=== PATIENT | male | born 1965 | race Caucasian/White ===

== ENCOUNTER → 2022-07-25 08:49 | Outpatient (BNVA) | payer OTHER, SELFPAY | PROVIDERS: PCP Nurse Practitioner Family; Referring Provider Nurse Practitioner Family; Visit Provider Surgery | DX: K40.20 Bilateral inguinal hernia, without obstruction or gangrene, not specified as recurrent (principal); M54.31 Sciatica, right side; H93.19 Tinnitus, unspecified ear; F41.9 Anxiety disorder, unspecified | CPT/HCPCS: 99202 ==

== ENCOUNTER 2022-08-13 13:17 | Outpatient (REF) | payer OTHER, SELFPAY ==
--- NOTE | ~2022-08-13 | XR_ITS ---
EXAMINATION: XR lumbar spine 6V w bending CLINICAL INFORMATION: Reason for Exam M47.816 - Spondylosis without myelopathy or radiculopathy, lumbar region COMPARISON: None TECHNIQUE: 6 views of the lumbar spine FINDINGS: 5 nonrib-bearing lumbar-type vertebral bodies. Vertebral body heights are maintained. Alignment is maintained. No pars defects. Minimal degenerative change and small anterior disc osteophyte complexes. Disc space heights are maintained. Paravertebral soft tissues are unremarkable. XR/XR lumbar spine 6V w bending IMPRESSION: Mild spondylosis of the lumbar spine, as above detailed.
== END 2022-08-13 13:18 | disposition home or self-care (01) ==
LOC: HO.XRAY 13:17
PROVIDERS: PCP Internal Medicine; Visit Provider Nurse Practitioner Family
DX: M47.816 Spondylosis without myelopathy or radiculopathy, lumbar region (principal); M54.16 Radiculopathy, lumbar region; M51.36 Other intervertebral disc degeneration, lumbar region
CPT/HCPCS: 72114; 99202

== ENCOUNTER 2022-08-23 07:55 | Outpatient (REF) | payer OTHER, SELFPAY ==
[2022-08-23 08:07] LABS: MANUAL DIFF FLAG NO
[2022-08-23 08:17] LABS: Basophils Absolute Auto 0.1 X10*3/uL (0.0-0.2); Basophils Percent Auto 1.4 % (0-2); Eosinophils Absolute Auto 1.2 X10*3/uL (0.0-0.4); Eosinophils Percent Auto 14.2 % (0-4); Hematocrit 45.1 % (42.0-52.0); Hemoglobin 14.9 g/dl (14.0-18.0); Imm Gran Abs Auto 0.04 X10*3/uL (0.00-0.03); Imm Gran Pct Auto 0.5 % (0.0-0.4); Lymphocytes Absolute Auto 2.4 X10*3/uL (1.2-4.9); Lymphocytes Percent Auto 28.1 % (20-40); Mean Corpuscular Volume 81.9 fL (80.0-98.0); Mean Platelet Volume 8.6 fL (9.4-12.4); Monocytes Absolute Auto 0.9 X10*3/uL (0.1-1.2); Monocytes Percent Auto 10.7 % (2-11); Neutrophils Absolute Auto 3.9 x10*3/uL (2.0-8.3); Neutrophils Percent Auto 45.1 % (45-73); Platelet Count 330 X10*3/uL (160-400); Red Blood Count 5.51 X10*6/uL (4.60-5.80); Red Cell Distribution Width 13.1 % (11.0-16.0); White Blood Count 8.7 X10*3/uL (4.8-10.8)
[2022-08-23 08:50] LABS: Alanine Aminotransferase 33 U/L (0-40); Albumin Level 4.3 g/dL (3.5-5.0); Alkaline Phosphatase 86 U/L (39-117); Anion Gap 14 (12-20); Aspartate Amino Transferase 37 U/L (5-37); Bilirubin Total 2.1 mg/dL (0.0-1.0); Blood Urea Nitrogen 24 mg/dL (9-16); Calcium 9.3 mg/dL (8.4-10.2); Carbon Dioxide 26 mmol/L (22-29); Chloride 105 mmol/L (96-108); Cholesterol 227 mg/dL; Estimated Glomerular Filt Rate > 60; Glucose Fasting 97 mg/dL (60-99); HDL Cholesterol 51 mg/dL; LDL Cholesterol Calculated 157 mg/dl; Potassium 4.6 mmol/L (3.3-5.1); Sodium 140 mmol/L (135-145); Total Protein 6.7 g/dL (6.5-8.0); Triglycerides 99 mg/dL
[2022-08-23 09:22] LABS: Folate 14.2 ng/mL (> or = 4.0); TSH reflex Free T4 2.77 uIU/mL (0.32-4.0); Vitamin B12 674 pg/mL (200-900); Vitamin D 25-OH Total 32.3 ng/mL (>30)
== END 2022-08-23 07:56 | disposition home or self-care (01) ==
LOC: HO.LAB 07:55
PROVIDERS: Visit Provider Nurse Practitioner Family
DX: Z12.5 Encounter for screening for malignant neoplasm of prostate (principal); Z76.89 Persons encountering health services in other specified circumstances
CPT/HCPCS: 36415; 80053; 80061; 82306; 82607; 82746; 84153; 84443; 85025

== ENCOUNTER 2022-09-01 09:40 | Outpatient (REF) | payer OTHER, SELFPAY | END 2022-09-01 09:41 | disposition home or self-care (01) | LOC: HO.LNP 09:40 | PROVIDERS: Visit Provider Nurse Practitioner Family | DX: K21.9 Gastro-esophageal reflux disease without esophagitis (principal) | CPT/HCPCS: 87338 ==

== ENCOUNTER 2022-09-03 13:00 | Outpatient (RCR) | payer OTHER, SELFPAY ==
--- NOTE | 2022-08-09 16:48 | MHC.PT.EP ---
[facility] [place] Office [place] Office [place] Office [address] Winnie Kendall [address] [phone] F: [phone] F: [phone] F: [phone] F: [phone] Physical Therapy Plan of Care Date of Evaluation: Date of Surgery: Diagnosis: RIGHT sided sciatica Small central disc protrusion at L5/S1 minimal bulging annulus L2/L3 and L4/L5 Assessment: Patient is a Jamaican speaking 57 y.o. male who is referred to PT by Marisol Rosado MD with Dx of right sided sciatica. PT diagnosis is lumbar spine small central disc protrusion at L5/S1 and minimal bulging annulus L2/L3 and L4/L5 as seen on MRI results. He does have chronic LBP with 2+ yr history with significant compensations which makes his prognosis fair. Patient impairments include poor posture and positioning, pain, radicular sxs, limited ROM, weakness, antalgic gait. Patient current functional limitations are bending, lifting, prolonged sitting, prolonged walking, 3 flights of stairs, sleeping. Patient will benefit from skilled PT to address aforementioned impairments and functional limitations to meet established goals. Frequency and Duration: The patient will be seen 2x/week for 4 weeks Short Term Goals: 2 weeks Patient presents with proper use of cane in L hand to offload R LE with step through pattern safely 100 ft. Patient demonstrates understanding of lumbar centralization versus peripheralization related to LBP with regards to movement and exercise. Nursing Home Goals: 4 weeks Patient presents with increased lumbar extension AROM 10 degrees to be able to stand for 15 mins for bathing. Patient presents with increased R hip flexion 4/5 to be able to ascend/descend 1 flight of stairs with railing. Treatment Plan: Modalities to reduce pain, spasms and effusion. Manual therapy to restore motion and function. Therapeutic exercise to improve strength and flexibility. Neuromuscular re-education for posture and balance. Therapeutic activities to return to functional activities of daily living. Electronically signed by: Hussein New, PT, DPT Please sign and return to therapist. Thank you for your referral.
--- NOTE | 2022-10-30 11:29 | MHC.PT.DC ---
[facility] [place] Office [place] Office [place] Office [address] Winnie Kendall [address] [phone] F: [phone] F: [phone] F: [phone] F: [phone] Physical Therapy Discharge Report Diagnosis: RIGHT sided sciatica Small central disc protrusion at L5/S1 minimal bulging annulus L2/L3 and L4/L5 Date of Surgery: Date of Evaluation: 08/09/22 Date of Discharge: 10/30/22 Treatments to Date: 6 Cancellations to Date: 1 No Shows to Date: Discharge Status: Patient Elected to Stop Discharge Summary: Patient ceased attending PT on his own accord, had difficulty tolerating PT treatments due to pain. He was referred and seen by spine center on 10/10/22 and they are taking over his care to perform imaging and perform alternate interventions. He is discharged from PT at this time. Electronically signed by: Hussein New, PT, DPT Please sign and return to therapist. Thank you for your referral.
== END 2022-10-30 11:30 | disposition home or self-care (01) ==
LOC: HO.PT 13:00
PROVIDERS: Visit Provider Nurse Practitioner Family
DX: M54.31 Sciatica, right side (principal)
CPT/HCPCS: 97014; 97110; 97116; 97140; 97161

== ENCOUNTER → 2022-10-09 09:45 | Outpatient (BNVA) | payer OTHER, SELFPAY | PROVIDERS: PCP Nurse Practitioner Family; Visit Provider Internal Medicine | DX: K21.9 Gastro-esophageal reflux disease without esophagitis (principal); K57.90 Diverticulosis of intestine, part unspecified, without perforation or abscess without bleeding; Z79.1 Long term (current) use of non-steroidal anti-inflammatories (NSAID); Z79.899 Other long term (current) drug therapy | CPT/HCPCS: 99202 ==

== ENCOUNTER → 2022-10-10 12:47 | Outpatient (BNVA) | payer OTHER, SELFPAY | PROVIDERS: PCP Nurse Practitioner Family; Visit Provider Neurological Surgery | DX: M54.16 Radiculopathy, lumbar region (principal) | CPT/HCPCS: 99202 ==

== ENCOUNTER 2022-10-16 13:07 | Emergency (ER) | payer OTHER, SELFPAY ==
--- NOTE | ~2022-10-16 | CT_ITS ---
EXAMINATION: CT CERVICAL SPINE WITHOUT CONTRAST CLINICAL INFORMATION: Neck pain radiating to bilateral shoulders COMPARISON: None available. TECHNIQUE: Axial 3 mm thin and reformatted 2 mm thin sagittal and coronal images of cervical spine were obtained without contrast This CT examination was performed using dose optimization techniques as appropriate, variously including the following: *Automated exposure control *Adjustment of mA and/or kV according to patient size (this includes techniques or standardized protocols for targeted exams where dose is matched to indication/reason for exam; i.e. extremities or head) *Use of iterative reconstruction technique DLP: 465 mGy-cm FINDINGS: On sagittal reconstructed images there is mild straightening of cervical lordosis. The vertebral heights, alignment and disc heights are normal. The craniovertebral junction and the C1-C2 alignment is normal. There is no visible acute fracture, dislocation or subluxation seen. The prevertebral and paravertebral soft tissues are normal. The airway is widely patent. Visualized bilateral maxillofacial, ethmoid and sphenoid frontal sinuses are widely patent with trace mucoperiosteal thickening bilateral maxillary sinuses. Bilateral TMJs are symmetric and normal. Visualized mandible and bilateral upper posterior ribs are intact. CT/CT cervical spine wo IV con IMPRESSION: 1. Mild straightening of cervical lordosis without any visible acute fracture, dislocation or subluxation. 2. Mild bilateral chronic maxillary sinus inflammatory changes. Fleischner guidelines were followed.
--- NOTE | 2022-10-16 13:49 | ED.GENADULT ---
HPI - General Adult General Chief complaint: Back Pain/Injury Stated complaint: Shoulder Neck Back Pain No Injury Time Seen by Provider: 10/16/22 16:49 Source: patient Mode of arrival: ambulatory Limitations: no limitations History of Present Illness HPI narrative: This is a 57-year-old Welsh-speaking male history of lumbar radiculopathy, GERD, depression, anxiety, chronic neck pain, hyperlipidemia presenting to the emergency department complaints of upper back pain, neck, b/l shoulder pain since yesterday, atraumatic in nature. Patient states he gets this pain all the time however this time it is not going away despite taking gabapentin, time Tylenol, ibuprofen. patient reports this started after awaking 1 day, he woke up with a stiff neck. Patient reports that since 1989 he has been getting pain like this since he had a horseback riding accident. Patient is followed by water resource engineering specialist for this recently saw neuro surgery on October 10, who recommended repeat MRI of the lumbar spine which he has not yet gotten. Denies recent fall or injury, urinary/ bowel incontinence/ retention, saddle paresthesias, numbness, tingling, headache, vision changes, dizziness, chest pain, shortness of breath, upper extremity weakness, lower extremity weakness. Related Data Previous Rx's Medication Instructions Recorded lidocaine 5 % topical patch 1 patch topical DAILY pain 30 days 08/13/22 #30 ea cane #1 ea 08/29/22 ibuprofen 600 mg tablet 600 mg PO Q8H PRN pain #30 tabs 08/31/22 sertraline 25 mg tablet 25 mg PO DAILY #30 tabs 09/12/22 cyclobenzaprine 5 mg tablet 5 mg PO Q12H PRN for muscle spasm 10/11/22 #30 tabs gabapentin 300 mg capsule 300 mg PO BEDTIME for pain 30 days 10/11/22 #30 caps cetirizine 10 mg tablet (Zyrtec) 10 mg PO DAILY PRN allergy 10/16/22 symptoms #90 tabs lidocaine 5 % topical patch 1 patch topical DAILY PRN pain #15 10/16/22 ea morphine 15 mg immediate release 15 mg PO Q6H PRN pain 5 days #10 10/16/22 tablet tabs omeprazole 20 mg capsule,delayed 20 mg PO BID 4 weeks #180 caps 10/16/22 release prednisone 20 mg tablet 40 mg PO DAILY 5 days #10 tabs 10/16/22 Allergies Allergy/AdvReac Type Severity Reaction Status Date / Time Seasonal Allergies Allergy Mild Unknown Verified 10/16/22 13:53 [facility] Past Medical History Medical History Encounter to establish care Surgical History History of ankle surgery History of colonoscopy History of esophagogastroduodenoscopy (EGD) Social History Social History Alcohol intake: never Patient Tobacco Use Status: Never used Tobacco Smoked in Last 30 Days: No e-Cigarette/Vaping Use: Never Used Use of substances other than those prescribed or required for medical reasons: No Advance Directives: No Advance Directives Information Provided: No service: No Cognitive needs: No Hearing needs: No Vision needs: No Physical Exam ED Vital Signs: Vital Signs - 24 hr 10/16/22 13:53 Temperature 96.8 F Pulse Rate 104 H Respiratory Rate 16 Blood Pressure 133/93 H Pulse Oximetry 97 Oxygen Delivery Method Room Air BMI result Body Mass Index 27.5 vss Appearance: Alert.? Oriented X3.? No acute distress.? Head: Normocephalic, atraumatic, no step-offs or deformities Eyes: Pupils equal, round and reactive to light.? ENT: Pharynx normal.??External ears normal, TMs normal bilaterally and EAC's normal. No pain with manipulation of external ears bilaterally. No mastoid tenderness. Neck: Normal inspection.? Neck supple.?+midline cervical spinous ttp to light touch & b/l shoulders/traps TTP . Negative Kernig and Brudzinski CVS: Normal heart rate and rhythm.? Pulses normal.? Respiratory: No respiratory distress.? Breath sounds normal.? Abdomen: Soft and nontender.? Skin: Skin warm and dry.? Normal skin color.? Normal skin turgor.? Extremities: No lower extremity edema.? No calf ttp. 5/5 strength to bilateral upper and lower extremities Back: No midline tenderness, no C-spine tenderness, full range of motion, no CVA tenderness bilaterally Neuro: Oriented X 3.? No motor deficit.? No sensory deficit. CN 2-12 intact Course Course Course Narrative: RME: 57yo M w/PMHx GERD, HLD, anxiety, depression, right lumbar radiculopathy c/o pain in neck, shoulder and upper back x yesterday morning. admits this pain is acute on chronic s/p horse accident in . denies recent injury/fall, incontinence or retention. Takes Gabapentin & Tylenol & Naproxen w/o relief Patient saw neuro surgery on 10/10 who would like to repeat MR of the lumbar spine, patient denies mentioning this pain at that time. +midline cervical spinous ttp to light touch & b/l shoulders/traps Full HPI, ROS and PE to be performed by primary ED provider. Reevaluation(s) Reevaluation #1: CT of cervical spine with mild straightening of the cervical lordosis out any visible acute fractures, dislocation or subluxations. Mild bilateral chronic maxillary sinus inflammatory changes. I suspect this is muscle spasms/ torticollis. Give morphine, Valium, Lidoderm patch. Have him follow up with signs poor and his neurosurgeon. Educated patient on diagnosis and treatment plan, answered all question, patient verbalizes understanding. At this time patient will be discharged home, advised to return with new or worsening symptoms. Educated on worrisome signs and symptoms and when to return. At this time I feel comfortable discharge home. Time: 17:32 Medical Decision Making Medical Decision Making [facility] Narrative: [id number] 57-year-old male presents with pain in neck, shoulders and back since yesterday morning history pain like this in the past intermittently since horseback riding accident 1989. Physical exam significant for midline cervical spinous ttp to light touch & b/l shoulders/traps TTP unlikely fractures, dislocations, cord compression, nerve impingement likely musculoskeletal in origin , torticollis, muscle spasms. unlikely epidural abscess, meningitis, encephalitis, ACS. Plan CT ordered from triage, will medicate with morphine, Lidoderm patch. Differential Diagnosis Differential Diagnoses: The differential diagnosis associated with the presentation includes unlikely fractures, dislocations, cord compression, nerve impingement likely musculoskeletal in origin, torticollis, muscle spasm. unlikely epidural abscess, meningitis, encephalitis, ACS. Admission/Observation Consideration of admission/observation: Escalation of care including admission/observation considered Unlikely Independent Interpretation I performed an independent interpretation of an: CT Scan Radiology Impression Discussion of test interpretation with radiology: I have reviewed the radiologist's reading. Core Measures AMI core measures followed: Yes Measure exclusions: not indicated Critical Care Time Critical Care Time Critical Care Time: No Discharge Plan Discharge Clinical Impression: Cervical paraspinal muscle spasm, Trapezius muscle spasm Patient Disposition: Home, Self-Care Instructions: Muscle Spasm (ED) Additional Instructions: Take your medications as prescribed. If you were prescribed antibiotics today, it is important that you take your medication to their entirety, do not skip any doses, do not finish them early. Follow-up with your primary care provider this week and neuro surgery. Return to the emergency department with new or worsening symptoms. Such as fevers, chills, chest pain, shortness of breath, nausea, vomiting, dizziness, headache, vision changes, lethargy In case of emergency call 911 CT/CT cervical spine wo IV con IMPRESSION: 1.? Mild straightening of cervical lordosis without any visible acute fracture, dislocation or subluxation. 2.? Mild bilateral chronic maxillary sinus inflammatory changes. ? Fleischner guidelines were followed. Prescriptions: New prednisone 20 mg tablet 40 mg PO DAILY 5 Days Qty: 10 0RF lidocaine 5 % adhesive patch,medicated 1 patch topical DAILY PRN (Reason: pain) Qty: 15 0RF Rx Instructions: leave on most painful area for up to 12 hrs morphine 15 mg tablet 15 mg PO Q6H PRN (Reason: pain) 5 Days Qty: 10 0RF Rx Instructions: Partial Fill upon patient request. No Action gabapentin 300 mg capsule 300 mg PO BEDTIME 30 Days Qty: 30 1RF cyclobenzaprine 5 mg tablet 5 mg PO Q12H PRN (Reason: for muscle spasm) Qty: 30 0RF omeprazole 20 mg capsule,delayed release(DR/EC) 20 mg PO BID 28 Days Qty: 180 0RF cetirizine [Zyrtec] 10 mg tablet 10 mg PO DAILY PRN (Reason: allergy symptoms) Qty: 90 1RF sertraline 25 mg tablet 25 mg PO DAILY Qty: 30 2RF ibuprofen 600 mg tablet 600 mg PO Q8H PRN (Reason: pain) Qty: 30 0RF (DME) cane Device See Rx Instructions .Route Qty: 1 0RF Rx Instructions: As directed lidocaine 5 % adhesive patch,medicated 1 patch topical DAILY 30 Days Qty: 30 0RF Referrals: Saykin,Marisol, DIRECTOR REGULATORY AFFAIRS [Primary Care Provider] - 2 days Spine&Sports Physician [Provider Group] - 2 days Stand Alone Forms: Work/School Release
[2022-10-16 13:53] VITALS: BP 133/93; PULSE 104; RESP 16; TEMP 36; O2SAT 97; BMI 27.5
[2022-10-16] MEDS: Morphine Sulfate Immed Release 15 MG TABLET PO (17:43)
[2022-10-16] MEDS: Lidocaine 4 % Patch ADH..PATCH 1 PATCH TRANSDERMA (17:43)
[2022-10-16] MEDS: diazePAM 2 MG TABLET PO (17:43)
[2022-10-16 17:52] VITALS: BP 131/92; PULSE 88; RESP 16; O2SAT 96
== END 2022-10-16 18:02 | disposition home or self-care (01) ==
PROVIDERS: Emergency Provider Emergency Medicine; PCP Nurse Practitioner Family
DX: M54.2 Cervicalgia (principal); M62.838 Other muscle spasm; M25.512 Pain in left shoulder; M25.511 Pain in right shoulder; M54.50 Low back pain, unspecified; Z79.899 Other long term (current) drug therapy
CPT/HCPCS: 72125; 99284

== ENCOUNTER 2022-11-14 09:41 | Outpatient (AMB) | payer OTHER, SELFPAY ==
--- NOTE | 2022-11-14 09:44 | A.OFFVIS_ITS ---
Intake Vital Signs 11/14/22 09:46 Height 5 ft 3.5 in Weight 158 lb 11.725 oz BMI 27.7 BP 118/74 Blood Pressure Location Lt brachial Position Sitting Pulse 73 Intake Visit Reasons: 6 week f/u Intake Note: Ney presents in the office as a 6 week follow up. CC: He states that he is having pains in the stomach are still continuing. Identity Management Consultant Required: Yes Identity Management Consultant Name: Darleen Dooley Allergies Seasonal Allergies Allergy (Mild, Verified 11/14/22 09:47) Unknown HPI HPI Comments History of Present Illness Details 57 y.o M with PMH of diverticulosis, who is here for follow up of GERD. 10/09/22: Seen with the help of court interpreter. Reports epigastric pain with certain foods such as peppers, grains, beans, chocolate which gets better with melon. Describes the discomfort as burning that goes up to chest. Sx are mostly at night time. No nausea or regurgitation. Does take ibuprofen daily for low back pain almost 3 years. Does not take any etOH. Former smoker. No fam hx of stomach cancer. No melena or hematochezia. In terms of diverticulosis describes having an upper and lower endoscopy 1.5y ago in [place] where he was told he has diverticulosis. Does not describe any changes in bowel habits. 11/14/22: Reports resolution of sx since starting omeprazole BID. Has no furhter burning epigastric pain. Avoiding food triggers as well. Never had any bowel changes to begin with. [facility] Medical History Encounter to establish care Surgical History History of ankle surgery History of colonoscopy History of esophagogastroduodenoscopy (EGD) Social History Alcohol intake: never Patient Tobacco Use Status: Never used Tobacco e-Cigarette/Vaping Use: Never Used service: No Cognitive needs: No Hearing needs: No Vision needs: No Review of Systems Const All systems reviewed & are unremarkable except as noted in HPI and below Physical Exam Vital Signs: Last Vital Signs Pulse 73 11/14/22 09:46 BP 118/74 11/14/22 09:46 BMI result Body Mass Index 27.7 Gen appear: NAD HEENT: nonicteric, no cervical lymphadenopathy Chest: CTA CVS: Regular S1/S2 Abd: soft, nontender, nondistended, bowel sounds + Ext: no peripheral edema Neuro: A/Ox3, noted to move all extremities spontaneously Psych: interacting appropriately Assessment & Plan Assessment & Plan (1) GERD (gastroesophageal reflux disease): Code(s): K21.9 - Gastro-esophageal reflux disease without esophagitis (2) NSAID long-term use: Code(s): Z79.1 - [facility] (current) use of non-steroidal anti-inflammatories (NSAID) (3) Diverticulosis: Code(s): K57.90 - Diverticulosis of intestine, part unspecified, without perforation or abscess without bleeding Plan 1. Sx resolved with avoidance of NSAIDs, food triggers and starting PPI therapy. Discussed indication of EGD with the pt who prefers to hold off for now since sx have responded well to measures above and previous EGD in [place] 2 years ago was normal per his report. Plan: - Decrease omeprazole to 20mg once daily x 4 weeks and can then stop - Recheck CBC - Pt to call us for return of sx for consideration of repeat EGD. 2. Reports having a colonoscopy was 2020 in [place], that also showed diverticulosis. No ongoing concerns related to diverticulosis such as changes in bowel habits, or bleeding. He reports that he was advised to return in 5 years i.e 2025. Bulletin board updated. Reminder set. Orders: Orders Complete Blood Count no Diff Today K21.9 - Gastro-esophageal reflux disease without esophagitis Ale Strong MD Medications: Changed From omeprazole 20 mg PO BID 4 weeks 180 caps 0RF K21.9 - Gastro-esophageal reflux disease without esophagitis To omeprazole 20 mg PO DAILY 4 weeks 28 caps 0RF K21.9 - Gastro-esophageal reflux disease without esophagitis Ale Strong MD On Hold ibuprofen Hold Comment: patient no 600 mg PO Q8H PRN 30 tabs 0RF pain M54.31 - Sciatica, right side EMILIE Haddad Coding Level of Care Code Est Pt Level 4 (42940) Diagnoses GERD (gastroesophageal reflux disease) K21.9 NSAID long-term use Z79.1 Diverticulosis K57.90
[2022-11-14 09:46] VITALS: BP 118/74; PULSE 73; BMI 27.7
== END 2022-11-14 11:16 | disposition home or self-care (01) ==
PROVIDERS: PCP Nurse Practitioner Family; Visit Provider Internal Medicine
DX: K21.9 Gastro-esophageal reflux disease without esophagitis (principal); Z79.1 Long term (current) use of non-steroidal anti-inflammatories (NSAID); K57.90 Diverticulosis of intestine, part unspecified, without perforation or abscess without bleeding
CPT/HCPCS: 99214

== ENCOUNTER 2022-11-14 09:41 | Outpatient (REF) | payer OTHER, SELFPAY ==
[2022-11-14 10:45] LABS: Hematocrit 44.2 % (42.0-52.0); Hemoglobin 14.6 g/dl (14.0-18.0); Mean Corpuscular Hemoglobin 27.1 pg (27.0-33.0); Mean Platelet Volume 8.6 fL (9.4-12.4); Platelet Count 333 X10*3/uL (160-400); Red Blood Count 5.39 X10*6/uL (4.60-5.80); Red Cell Distribution Width 12.8 % (11.0-16.0); White Blood Count 7.3 X10*3/uL (4.8-10.8)
== END 2022-11-14 09:42 | disposition home or self-care (01) ==
LOC: HO.LAB 09:41
PROVIDERS: PCP Nurse Practitioner Family; Visit Provider Internal Medicine
DX: K21.9 Gastro-esophageal reflux disease without esophagitis (principal); K57.90 Diverticulosis of intestine, part unspecified, without perforation or abscess without bleeding; R10.13 Epigastric pain; Z79.01 Long term (current) use of anticoagulants
CPT/HCPCS: 36415; 85027; 99212

== ENCOUNTER 2022-12-05 10:22 | Outpatient (AMB) | payer OTHER, SELFPAY ==
[2022-12-05 10:23] VITALS: BP 110/72; PULSE 78; O2SAT 96; BMI 27.9
--- NOTE | 2022-12-05 10:23 | A.OFFPC_ITS ---
Vital Signs 12/05/22 10:23 Height 5 ft 3.5 in Weight 160 lb BMI 27.9 BP 110/72 Blood Pressure Location Lt brachial Position Sitting Pulse 78 Pulse Source Pulse Oximeter Temp Source Skin Pulse Oximetry (%) 96 Oxygen Delivery Method Room Air Intake Visit Reasons: 2mth f/u Barrel Charrer Required: Yes Barrel Charrer Language: Cuban Allergies Seasonal Allergies Allergy (Mild, Verified 12/05/22 11:58) Unknown Medication List - Last Reconciled 12/05/22 by ARIEL Bliss acetaminophen (Tylenol Extra Strength) 1,000 mg PO Q6H PRN cane As directed cetirizine (Zyrtec) 10 mg PO DAILY PRN cyclobenzaprine 5 mg PO Q8H PRN gabapentin 300 mg PO BEDTIME 30 days hydroxyzine HCl 10 mg PO TID PRN lidocaine 5% 1 patch topical DAILY 30 days miscellaneous medical supply 1 ea miscellaneous DAILY omeprazole 20 mg PO DAILY 4 weeks sertraline 50 mg PO DAILY Tobacco use date assessed: 12/05/22 Dental Screening Dental Screen Date: 12/05/22 HPI 2mth f/u HPI Details Patient is a 57-year-old male who presents today to follow-up on depression. Medical history significant for sciatica of right side-followed by [facility]-plan for lumbar spine MRI, lumbar radiculopathy, anxiety, GERD-followed by [facility], depression, hyperlipidemia, cervical radiculopathy- will be having cervical spine MRI - reports intermittent electric shock going down to both of his arms - reports intermittent numbness in his 4th and 5th fingers-reports muscle spasms. Patient also reports left shoulder pain and unable to raise his left arm completely for the past 3 months, reports pain sometimes radiate from his neck to his shoulder and sometimes he can feel pain in his left shoulder. At the last office visit patient was started on sertraline 25 mg daily for depression and anxiety, he reports that he does not think this medication is working for him. He still reports anxiety and depression. He reports when he feels very anxious he can have palpitations in his neck area. Patient is following by therapist. He will be seeing psychiatrist this month. Patient also reports left leg varicose veins for the past 3 months, reports intermittent swelling, would like assessment for this. Patient denies shortness of breath or chest pain. Ambulates with a rolling walker. Patient is a Cuban-speaking and Mary Carmen was helping with interpretation. [facility] Medical History Encounter to establish care Surgical History History of ankle surgery History of colonoscopy History of esophagogastroduodenoscopy (EGD) Social History Alcohol intake: never Patient Tobacco Use Status: Never used Tobacco e-Cigarette/Vaping Use: Never Used service: No Cognitive needs: Yes Hearing needs: No Vision needs: No Questionnaire Thrive Questionnaire Date Thrive assessed: 09/12/22 AUDIT C Alcohol Use Questionnaire (AUDIT-C) 1. How often do you have a drink containing alcohol?: Never 2. How many drinks containing alcohol do you have on a typical day when you are drinking?: 1 or 2 3. How often do you have six or more drinks on one occasion?: Never Total Score: 0 Score Reviewed/Action Taken: No CHERELLE-7 AMB Questionnaire CHERELLE-7 Date CHERELLE - 7 assessed: 09/12/22 Source: Developed by Drs. Natanael Espinal, Silvia Boswell, Isacc López and colleagues, with an educational og from [employer]. Review of Systems Const Denies body aches, Denies chills, Denies fever(s) and Denies headache(s) Eyes Denies change in vision ENT Denies dizziness, Denies otalgia, Denies headache(s), Denies nasal discharge, Denies sinus pain and Denies sore throat Card Denies chest pain, Denies edema, Denies lightheadedness and Denies dyspnea Resp Denies cough, Denies dyspnea and Denies wheezing GI Denies constipation, Denies diarrhea, Denies nausea and Denies vomiting Denies dysuria Musc Reports back pain, Denies myalgias and Reports arthralgias Skin/Breast Reports as per HPI, Denies lesions and Denies rash Neuro Denies dizziness and Denies headache(s) Aller/Immun Denies wheezing Physical exam (Primary Care) Vital Signs: Last Vital Signs Pulse 78 12/05/22 10:23 BP 110/72 12/05/22 10:23 Pulse Ox 96 12/05/22 10:23 Oxygen Delivery Method Room Air 12/05/22 10:23 BMI result Body Mass Index 27.9 Tobacco/Smoking Status: Tobacco use Status Tobacco use date assessed 12/05/22 12/05/22 10:24 Patient Tobacco Use Status Never used Tobacco 12/05/22 10:24 e-Cigarette/Vaping Use Never Used 12/05/22 10:24 Thrive Assessment: Date of Thrive Assessment Date Thrive assessed 09/12/22 12/05/22 10:24 Const Other: Patient ambulates with a cane General: cooperative and no acute distress Orientation/consciousness: patient oriented x3 HENMT Head: Yes normocephalic and Yes atraumatic Face and sinus: Yes sinuses nontender Mouth: oropharynx normal and moist mucous membranes Throat: Yes posterior oropharynx normal Eyes General: appearance normal, both eyes and all related structures Neck Neck: Yes normal visual inspection, Yes full ROM and Yes no lymphadenopathy Resp Effort & Inspection: normal respiratory effort and able to speak in complete sentences Auscultation: clear to auscultation bilaterally, no crackles, no rales, no rhonchi and no wheezes Cardio Rate: regular rate Rhythm: regular rhythm Heart sounds: S1 normal heart sound present, S2 normal heart sound present and no murmurs GI Auscultation: normal bowel sounds Back/Spine/Pelvis Cervical Spine: cervical muscular tenderness and No Cervical spine tenderness Skin Other: Nontender varicose veins noted to left lower extremity General skin exam: no rashes or lesions noted Neuro Other: Very mild weakness noted to bilateral upper extremity General: patient oriented x3 and CN's II-XI intact bilaterally Extrem General: Yes full ROM and No edema Left upper extremity: shoulder/upper arm Details: inspection abnormal, tenderness (Anterior/posterior) and abnormal ROM (Unable to abduct left shoulder completely); no swelling, no ecchymosis, no crepitus and no unsual warmth Assessment and Plan Assessment & Plan (1) Anxiety: Code(s): F41.9 - Anxiety disorder, unspecified Plan: Continue to follow-up with therapist Patient will be seeing psychiatry this month Increase sertraline to 50 mg daily Start hydroxyzine 10 mg t.i.d. p.r.n.-educated about drowsiness (2) Lumbar radiculopathy: Code(s): M54.16 - Radiculopathy, lumbar region Plan: Continue to follow-up with [facility] - plan for lumbar spine MRI Continue to follow-up with [place] pain management Continue gabapentin, Tylenol, cyclobenzaprine (3) Depression: Code(s): F32.A - Depression, unspecified Qualifiers: Depression Type: other depression Qualified Code(s): F32.89 - Other specified depressive episodes Plan: Continue to follow-up with therapist Patient will be seeing psychiatry this month Increase sertraline to 50 mg daily Start hydroxyzine 10 mg t.i.d. p.r.n.-educated about drowsiness (4) Varicose vein of leg: Code(s): I83.90 - Asymptomatic varicose veins of unspecified lower extremity Plan: Vascular surgery referral for an evaluation and treatment (5) Left shoulder pain: Code(s): M25.512 - Pain in left shoulder Plan: Patient is to continue gabapentin, cyclobenzaprine, Tylenol Will obtain left shoulder x-ray Patient would like to hold off on physical therapy referral at this time (6) Cervical radiculopathy: Code(s): M54.12 - Radiculopathy, cervical region Plan: Patient will be having cervical spine MRI Will increase cyclobenzaprine to every 8 hours p.r.n., continue Tylenol and gabapentin Plan Follow-up in 3 months or sooner as needed Orders: Orders XR shoulder LT min 2V Today M25.512 - Pain in left shoulder Referrals Vascular Surgery Referral I83.90 - Asymptomatic varicose veins of unspecified lower extremity Medications: New sertraline 50 mg PO DAILY 30 tabs 2RF F32.A - Depression, unspecified hydroxyzine HCl 10 mg PO TID PRN 30 tabs 0RF anxiety F41.9 - Anxiety disorder, unspecified Changed From cyclobenzaprine 5 mg PO Q12H PRN 30 tabs 0RF for muscle spasm M54.31 - Sciatica, right side To cyclobenzaprine 5 mg PO Q8H PRN 45 tabs 1RF for muscle spasm M54.31 - Sciatica, right side Discontinued sertraline Discontinued Reason: Doctor's Order 25 mg PO DAILY 30 tabs 2RF F32.A - Depression, unspecified, F41.9 - Anxiety disorder, unspecified Coding Level of Care Code Est Pt Level 4 (22048) Diagnoses Anxiety F41.9 Lumbar radiculopathy M54.16 Depression F32.89 Depression Type: other depression Varicose vein of leg I83.90 Left shoulder pain M25.512 Cervical radiculopathy M54.12
== END 2022-12-05 12:40 | disposition home or self-care (01) ==
PROVIDERS: PCP Nurse Practitioner Family; Visit Provider Nurse Practitioner Family
DX: F41.9 Anxiety disorder, unspecified (principal); M54.16 Radiculopathy, lumbar region; F32.89 Other specified depressive episodes; I83.90 Asymptomatic varicose veins of unspecified lower extremity; M25.512 Pain in left shoulder; M54.12 Radiculopathy, cervical region
CPT/HCPCS: 99214

== ENCOUNTER 2022-12-05 12:41 | Outpatient (REF) | payer OTHER, SELFPAY ==
--- NOTE | ~2022-12-05 | XR_ITS ---
EXAMINATION: XR SHOULDER, LEFT CLINICAL INFORMATION: Pain in left shoulder COMPARISON: None available. TECHNIQUE: AP external rotation, Grashey, scapular Y, and axillary views of the left shoulder. FINDINGS: The bones are intact. No fracture. Glenohumeral and acromioclavicular alignment is anatomic with normal joint space. Tiny osteophyte extends off the inferior aspect of the glenoid. No abnormal soft tissue calcifications. XR/XR shoulder LT min 2V IMPRESSION: No acute bony abnormality.
== END 2022-12-05 12:42 | disposition home or self-care (01) ==
LOC: HO.XRAY 12:41
PROVIDERS: PCP Nurse Practitioner Family; Visit Provider Nurse Practitioner Family
DX: M25.512 Pain in left shoulder (principal)
CPT/HCPCS: 73030

== ENCOUNTER 2022-12-12 09:46 | Outpatient (REF) | payer OTHER, SELFPAY ==
--- NOTE | ~2022-12-12 | MR_ITS ---
EXAMINATION: MR LUMBAR SPINE WITHOUT CONTRAST CLINICAL INFORMATION: Lumbar radiculopathy COMPARISON: None TECHNIQUE: MRI of the lumbar spine was obtained using routine sequences without contrast. FINDINGS: Normal anatomic alignment. No suspicious marrow signal or focal osseous lesion. No significant marrow edema. The vertebral body heights are maintained. Disc desiccation at L5-S1. The conus medullaris terminates at the level of L1. The distal spinal cord is normal in appearance. The cauda equina nerve roots appear normal. No significant abnormalities of the paraspinal musculature. Limited evaluation of the intra-abdominal structures without significant abnormalities. The abdominal aorta is of normal contour and caliber. SPINAL LEVELS: T12-L1: No significant spinal canal or neural foraminal narrowing L1-L2: No significant spinal canal or neuroforaminal narrowing. L2-L3: No significant spinal canal or neuroforaminal narrowing. Shallow disc bulge. L3-L4: No significant spinal canal or neuroforaminal narrowing. Shallow disc bulge. L4-L5: No significant spinal canal or neuroforaminal narrowing. Shallow disc bulge. L5-S1: No significant spinal canal or neuroforaminal narrowing. Shallow disc bulge with small central protrusion. MR/MR lumbar spine wo con IMPRESSION: Minimal degenerative changes of the lumbar spine. No significant spinal canal stenosis, neural foraminal narrowing, or evidence of nerve impingement.
--- NOTE | ~2022-12-12 | MR_ITS ---
EXAMINATION: MR CERVICAL SPINE WITHOUT CONTRAST CLINICAL INFORMATION: Cervical radiculopathy. COMPARISON: Cervical spine CT 10/16/2022. TECHNIQUE: MRI of the cervical spine was obtained using routine sequences without contrast. FINDINGS: Alignment is normal. Vertebral body heights are preserved. No acute bone marrow signal changes. There is disc desiccation at multiple levels without substantial loss of intervertebral disc height. The cervicomedullary junction is normal. Limited visualization of the posterior fossa reveals no abnormal finding. Occipital condyles and lateral C1 masses are intact. There is degenerative arthrosis of the atlantodental joint. C1-C2 articular facets are unremarkable. At C2-C3 the annular contour is normal. No canal or neuroforaminal compromise. At C3-C4 there is a slightly bulging disc. No canal stenosis. No neuroforaminal encroachment. At C4-C5 there is a broad shallow left central protrusion causing indentation of the thecal sac. Mild to moderate canal stenosis. No substantial neuroforaminal encroachment. At C5-C6 there is a bulging disc. No canal stenosis. Uncovertebral joint spurring and conjunction with facet degenerative change causes mild left neuroforaminal encroachment. At C6-C7 there is a slightly bulging disc. No canal stenosis. Uncovertebral joint spurring and conjunction with facet degenerative change causes moderate right neuroforaminal encroachment. At C7-T1 the annular contour is normal. No canal stenosis. No neuroforaminal encroachment. Visualized soft tissues of the neck are normal. Vascular flow voids are maintained. MR/MR cervical spine wo con IMPRESSION: There is multilevel degenerative spondylosis of the cervical spine. A broad shallow left central protrusion at C4-C5 causes mild to moderate canal stenosis. Otherwise no canal compromise. No cord compression or abnormal intramedullary signal changes. There are varying degrees of neuroforaminal encroachment related to uncovertebral joint spurring and facet degenerative change as described above.
== END 2022-12-12 09:47 | disposition home or self-care (01) ==
LOC: HO.MRI 09:46
PROVIDERS: PCP Nurse Practitioner Family; Visit Provider Nurse Practitioner Family
DX: M54.12 Radiculopathy, cervical region (principal); M54.16 Radiculopathy, lumbar region
CPT/HCPCS: 72141; 72148

== ENCOUNTER 2023-01-08 14:08 | Outpatient (AMB) | payer OTHER, SELFPAY ==
--- NOTE | 2023-01-08 14:37 | HO.SPINEOV ---
Intake Intake Visit Reasons: MRI follow up Intake Note: Mr. Del Cid is here today to discuss MRI results. Embedded Software Manager Required: No Allergies Seasonal Allergies Allergy (Mild, Verified 12/05/22 11:58) Unknown Assessment & Plan Assessment & Plan (1) Lumbar radiculopathy, right: Code(s): M54.16 - Radiculopathy, lumbar region Plan Dear colleague, On 01/08/2023, I saw for follow-up Ney Whitley. He suffering from a classic right L5 radiculopathy. A repeat MRI unfortunately shows no compression of the L5 nerve root or any other nerve roots. 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 I would like to refer him to Neurology for further evaluation and they can decide if they want a referral to Pain Management for a spinal cord stimulator. Thank you for the referral. Aung Sauer MD, PhD Spine Fellowship Trained Neurosurgeon Director, [facility] Orders: Referrals Neurology Referral M54.16 - Radiculopathy, lumbar region Coding Level of Care Code Est Pt Level 3 (55969) Diagnoses Lumbar radiculopathy, right M54.16
== END 2023-01-08 14:53 | disposition home or self-care (01) ==
PROVIDERS: PCP Nurse Practitioner Family; Visit Provider Neurological Surgery
DX: M54.16 Radiculopathy, lumbar region (principal)
CPT/HCPCS: 99213

== ENCOUNTER → 2023-01-08 14:08 | Outpatient (BNVA) | payer OTHER, SELFPAY | PROVIDERS: PCP Nurse Practitioner Family; Visit Provider Neurological Surgery | DX: M54.16 Radiculopathy, lumbar region (principal) | CPT/HCPCS: 99212 ==

== ENCOUNTER 2023-01-09 12:08 | Outpatient (AMB) | payer OTHER, SELFPAY ==
--- NOTE | 2023-01-09 12:21 | MHC.OFFVIS ---
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 Patient reports pain present for about 6 months, denies injury. He has constant sharp pain. No other tx. He has tried Tylenol with no relief. He reports weakness when lifting his left hand above shoulder height. Drug Abuse Program Coordinator Name: Senia ID#[id number] Allergies Seasonal Allergies Allergy (Mild, Verified 01/09/23 12:30) Unknown Medication List - Last Reconciled 01/09/23 by Nicolás Devlin MD acetaminophen (Tylenol Extra Strength) 1,000 mg PO Q6H PRN cane As directed cetirizine (Zyrtec) 10 mg PO DAILY PRN cyclobenzaprine 5 mg PO Q8H PRN gabapentin 300 mg PO BEDTIME 30 days hydroxyzine HCl 10 mg PO TID PRN lidocaine 5% 1 patch topical DAILY 30 days lorazepam 0.5 mg PO BID PRN miscellaneous medical supply 1 ea miscellaneous DAILY omeprazole 20 mg PO DAILY 4 weeks sertraline 50 mg PO DAILY trazodone 50 mg PO BEDTIME PFSH Medical History Encounter to establish care Surgical History History of ankle surgery History of colonoscopy History of esophagogastroduodenoscopy (EGD) Social History Alcohol intake: never Patient Tobacco Use Status: Never used Tobacco e-Cigarette/Vaping Use: Never Used service: No Current occupational status: unemployed Cognitive needs: Yes Hearing needs: No Vision needs: No Physical Exam Const Other: Well-nourished well-developed very friendly male awake alert and oriented x3 in no acute distress Extrem Other: Bilateral upper extremity examination shows good capillary refill, no skin lesions noted, normal sensation light touch Left shoulder examination shows decreased range of motion to his right shoulder, 4+ out of 5 strength with supraspinatus testing, positive impingement signs, tenderness over his acromioclavicular joint, no instability Office Procedures Joint Injection/Drain Joint Injection/Drain Primary Site: left shoulder Prep: site was prepped using aseptic technique Injected: 40 mg of, Kenalog and 1% plain lidocaine Procedure: The patient tolerated the procedure well Coding 04563 - Large joint Procedure code (CPT) selection complete Results Reviewed Results Reviewed: X-rays of the patient's left shoulder taken today show severe acromioclavicular joint narrowing, type 2 acromion, no acute bony abnormalities Assessment & Plan Assessment & Plan (1) Impingement syndrome of left shoulder: Code(s): M75.42 - Impingement syndrome of left shoulder Plan: Mr. Nehemias Whitley presents with progressively worsening left shoulder pain and weakness due to impingement syndrome and possible rotator cuff tearing. I had a lengthy discussion with the patient regarding the treatment options. The risks and benefits of a left shoulder cortisone injection were discussed at length with the patient. The patient wished to proceed. He tolerated the injection well. Activity modifications were also discussed at length with the patient. The patient will follow up with me on an as-needed basis should his symptoms not plateau at an unacceptable level over the next few months. If he does not get lasting relief from the cortisone injection therapy I will order an MRI of his left shoulder to further evaluate status of his rotator cuff tendons. Feel free to call me at any time should questions regarding his orthopedic management arise. Thank you very much for asking me to see this very friendly gentleman. I spent 22 minutes in reviewing the patient's records and imaging studies, seeing the patient and documenting in the medical record. Orders: Orders AMB Joint Injection/Aspiration Today M75.42 - Impingement syndrome of left shoulder Coding Level of Care Code New Pt Level 2 (26029) Diagnoses Impingement syndrome of left shoulder M75.42 CPT Codes Coding - 37063 Large joint: 56561 - Large joint ([id number])
[2023-01-09 12:34] VITALS: BMI 27.9
== END 2023-01-09 12:57 | disposition home or self-care (01) ==
PROVIDERS: PCP Nurse Practitioner Family; Visit Provider Orthopaedic Surgery
DX: M75.42 Impingement syndrome of left shoulder (principal)
CPT/HCPCS: 20610; 99203

== ENCOUNTER → 2023-01-09 12:08 | Outpatient (BNVA) | payer OTHER, SELFPAY | PROVIDERS: PCP Nurse Practitioner Family; Visit Provider Orthopaedic Surgery | DX: M75.42 Impingement syndrome of left shoulder (principal) | CPT/HCPCS: 20610; J3301 ==

== ENCOUNTER 2023-01-21 13:00 | Outpatient (RCR) | payer OTHER, SELFPAY | END 2023-02-19 08:02 | disposition home or self-care (01) | LOC: HO.PT 13:00 | PROVIDERS: PCP Nurse Practitioner Family; Visit Provider Physician Assistant | DX: H81.13 Benign paroxysmal vertigo, bilateral (principal) | CPT/HCPCS: 95992; 97112; 97140; 97162 ==

== ENCOUNTER 2023-01-29 11:31 | Outpatient (AMB) | payer OTHER, SELFPAY ==
--- NOTE | 2023-01-29 11:35 | A.OFFVIS_ITS ---
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 he states the veins on left foot are more swollen and painful Allergies Seasonal Allergies Allergy (Mild, Verified 01/29/23 11:37) Unknown HPI EGG SEPARATOR Ref for VV HPI Details Complex 57-year-old gentleman presents for evaluation regarding varicosities of his left foot. He has us significant history of sciatica regarding the right lower extremity. In addition he had a left leg injury which he had some plating and screwing in the past. Of note he developed varicosities after this event. He has been extremely anxious about the varicosities as he had mother from what appears to be coronary artery disease. He now presents to us for vascular evaluation. Of note he is nonsmoker nondiabetic. He notices occasional swelling of the lower extremities left more so than right. Has had no prior venous interventions. [facility] Medical History Encounter to establish care Surgical History History of ankle surgery History of colonoscopy History of esophagogastroduodenoscopy (EGD) Social History (Updated 01/09/23 @ 12:33 by EMILIE Muñoz) Alcohol intake: never Patient Tobacco Use Status: Never used Tobacco e-Cigarette/Vaping Use: Never Used service: No Current occupational status: unemployed Cognitive needs: Yes Hearing needs: No Vision needs: No Review of Systems Const Reports as per HPI ENT Reports no additional complaints Card Denies chest pain, Denies chest pain at rest and Denies chest pain with activity Resp Denies chest congestion and Denies cough GI Reports no additional complaints Musc Details: pain over varicosities, aching of lower extremities, swelling, cramping, heaviness and tiredness, itching Denies abnormal gait Skin/Breast Reports pruritus and Denies wounds Neuro Reports no additional complaints and Denies abnormal gait Psych Denies no additional complaints Physical Exam Vital Signs: BMI result Body Mass Index 29.6 Const General: cooperative, healthy appearing and comfortable Orientation/consciousness: oriented to person, oriented to place and oriented to time Neck Carotids: no bruits Chest Chest palpation & inspection: normal inspection of the chest and normal palpation of entire chest wall Resp Effort & Inspection: normal respiratory effort and able to speak in complete sentences Cardio Rate: regular rate Heart sounds: S1 normal heart sound present and S2 normal heart sound present Peripheral pulses: Peripheral pulses 2+ throughout GI Inspection: Yes normal to inspection Skin Other: +1 edema, multiple spider telangiectasias and some varicosities on the left foot. General skin exam: dry skin Neuro General: oriented to person, oriented to place and oriented to time Extrem Right lower extremity: full ROM, normal capillary refill and edema Left lower extremity: full ROM, normal capillary refill and edema Psych Mental Status: mental status grossly normal Assessment & Plan Assessment & Plan (1) Varicose veins of left lower extremity with inflammation: Code(s): I83.12 - Varicose veins of left lower extremity with inflammation Plan: In short the patient does have some mild swelling is Um spider telangiectasias. He may have an element of venous insufficiency. I have taken the liberty of ordering that test to rule that out. In addition we did discuss conservative measures including compression elevation and exercise. Will follow up with us after testing. Thank you for allowing us to assist in his care. Orders: Orders US venous duplex LE BI 1 Week I83.12 - Varicose veins of left lower extremity with inflammation Coding Level of Care Code New Pt Level 4 (58071) Diagnoses Varicose veins of left lower extremity with inflammation I83.12
[2023-01-29 11:37] VITALS: BMI 29.6
== END 2023-01-29 11:48 | disposition home or self-care (01) ==
PROVIDERS: PCP Nurse Practitioner Family; Visit Provider Surgery Vascular Surgery
DX: I83.12 Varicose veins of left lower extremity with inflammation (principal)
CPT/HCPCS: 99203

== ENCOUNTER → 2023-01-29 11:31 | Outpatient (BNVA) | payer OTHER, SELFPAY | PROVIDERS: PCP Nurse Practitioner Family; Visit Provider Surgery Vascular Surgery ==

== ENCOUNTER 2023-02-05 13:19 | Outpatient (REF) | payer OTHER, SELFPAY ==
--- NOTE | 2023-02-05 14:14 | MHC.AU.HA1 ---
Hearing Aid Evaluation Date of Visit: 02/05/23 Certified Orthotist Practice Manager Used: Started with Niuean - by phone; ended with in-person media liaison officer Historical Information: Description of Hearing: Within normal sloping to moderately-severe sensorineural hearing loss, bilaterally. Summary: Ney provided a hearing test and medical clearance from [facility]. He reported that he has significant, constant, bilateral tinnitus as well as sensitivities to loud noises including motorcycles and trimmers. Ney has difficulty hearing and understanding in a variety of listening environments. He primarily stays home; however, he is enrolled in a program for disabled individuals that he attends every day. There are meetings with groups of people and social interactions. He also goes to a christian on Saturdays. Ney is interested in pursuing hearing aids to help ease some of his communication difficulties. Ney opted for rechargeable RITE hearing aids that are compatible with his iPhone. Hearing Aid Prescription: Based on the individual?s shared listening needs, communication environments, dexterity, desire for connectivity, and personal preferences, the following prescription for amplification has been made: Right ear: Make Model, Color: Oticon REAL 2 miniRITE-R Color: Chroma Beige Battery Size: Rechargeable Insurance Claims Clerk/Slim Tube: 2/85 Type of Earmold/Dome/CShell/SlimTip: 8mm open dome Left ear: Left ear prescription to be same as Right Hearing Aid above: Make, Model, Color: Oticon REAL 2 miniRITE-R Color: Chroma Beige Battery Size: Rechargeable Insurance Claims Clerk/Slim Tube: 2/85 Type of Earmold/Dome/CShell/SlimTip: 8mm open dome Accessories/Assistive Technology Recommended: Chief Crew Scheduler Plan of Care: Patient wishes to purchase hearing aids as prescribed Action Taken/Action Needed: Hearing Instrument Fitting to be scheduled when materials arrive Primary Diagnosis: H90.3 Bilateral Sensorineural Hearing Loss Signature: Provider: Jessica Hutchins, [facility]
== END 2023-02-05 13:20 | disposition home or self-care (01) ==
LOC: HO.HAP 13:19
PROVIDERS: Visit Provider Nurse Practitioner Family
DX: Z46.1 Encounter for fitting and adjustment of hearing aid (principal); H90.3 Sensorineural hearing loss, bilateral
CPT/HCPCS: 92591

== ENCOUNTER 2023-02-13 10:10 | Outpatient (REF) | payer OTHER, SELFPAY ==
--- NOTE | ~2023-02-13 | US_ITS ---
EXAMINATION: US LOWER EXTREMITY VENOUS (REFLUX EXAM), BILATERAL CLINICAL INDICATION: Chronic venous insufficiency with lower extremity varicose veins with inflammation COMPARISON: None. TECHNIQUE: Color flow triplex imaging and compression Doppler was performed to evaluate both the deep and the superficial systems bilaterally. To evaluate the superficial system, the examination was performed in the upright position. Color-flow Doppler ultrasound and compression ultrasound were utilized. In addition, maneuvers were utilized to demonstrate reflux. FINDINGS: 1. DEEP VENOUS ULTRASOUND OF THE RIGHT LOWER EXTREMITY: Common Femoral Vein: Compressible, normal respiratory variation and augmented flow. Femoral Vein: Compressible, normal color flow and augmentation. Popliteal Vein: Compressible, normal augmentation. Deep Reflux: There is no evidence of reflux in the deep system in either the common femoral vein or the popliteal vein. There is no evidence of a Sim's cyst. 2. SUPERFICIAL ULTRASOUND WITH DOPPLER OF RIGHT LOWER EXTREMITY: GREAT SAPHENOUS VEIN: Saphenofemoral Junction: 0.7 cm; Reflux: 0 ms Proximal Thigh: 0.4 cm; Reflux: 0 ms Mid Thigh: 0.3 cm; Reflux: 0 ms Above Knee: 0.3 cm; Reflux: 0 ms At Knee: 0.2 cm; Reflux: 0 ms Below Knee: 0.2 cm; Reflux: 0 ms Mid Calf: 0.1 cm; Reflux: 0 ms Ankle: 0.1 cm; Reflux: 0 ms DUPLICATED MEDIAL GREAT SAPHENOUS VEIN: Diameter: None imaged Reflux: NA DUPLICATED LATERAL GREAT SAPHENOUS VEIN: Diameter: 0.2 cm Reflux: None SMALL SAPHENOUS VEIN: Proximal: 0.3 cm; Reflux: 0 ms Distal: 0.2 cm; Reflux: 0 ms VEIN OF GIACOMINI: Size: NA Reflux: NA PERFORATORS: Location: None imaged Size: NA Reflux: NA VARICOSITIES: Location: None imaged Size: NA Reflux: NA 3. DEEP VENOUS ULTRASOUND OF THE LEFT LOWER EXTREMITY: Common Femoral Vein: Compressible, normal respiratory variation and augmented flow. Femoral Vein: Compressible, normal color flow and augmentation. Duplicated superficial femoral vein is present. Popliteal Vein: Compressible, normal augmentation. Deep Reflux: There is no evidence of reflux in the deep system in either the common femoral vein or the popliteal vein. There is no evidence of a Sim's cyst. 4. SUPERFICIAL ULTRASOUND WITH DOPPLER OF LEFT LOWER EXTREMITY: GREAT SAPHENOUS VEIN: Saphenofemoral Junction: 0.8 cm; Reflux: 0 ms Proximal Thigh: 0.3 cm; Reflux: 0 ms Mid Thigh: 0.4 cm; Reflux: 0 ms Above Knee: 0.3 cm; Reflux: 0 ms At Knee: 0.3 cm; Reflux: 0 ms Below Knee: 0.2 cm; Reflux: 0 ms Mid Calf: 0.2 cm; Reflux: 0 ms Ankle: 0.3 cm; Reflux: 0 ms DUPLICATED MEDIAL GREAT SAPHENOUS VEIN: Diameter: None imaged Reflux: NA DUPLICATED LATERAL GREAT SAPHENOUS VEIN: Diameter: None imaged Reflux: NA SMALL SAPHENOUS VEIN: Proximal: 0.2 cm; Reflux: 0 ms Distal: 0.2 cm; Reflux: 0 ms VEIN OF GIACOMINI: Size: NA Reflux: NA PERFORATORS: Location: None imaged Size: NA Reflux: NA VARICOSITIES: Location: None Imaged Size: NA Reflux: NA US/US venous duplex LE IMPRESSION: Right: No significant venous insufficiency or reflux in the great saphenous vein or small saphenous vein Left: No significant venous insufficiency or reflux in the great saphenous vein or small saphenous vein
== END 2023-02-13 10:11 | disposition home or self-care (01) ==
LOC: HO.US 10:10
PROVIDERS: PCP Nurse Practitioner Family; Visit Provider Surgery Vascular Surgery
DX: I83.12 Varicose veins of left lower extremity with inflammation (principal)
CPT/HCPCS: 93970

== ENCOUNTER 2023-03-12 13:00 | Outpatient (AMB) | payer OTHER, SELFPAY ==
--- NOTE | 2023-03-12 13:07 | A.OFFVIS_ITS ---
Intake Intake Visit Reasons: FU US Intake Note: FU US on 02/13/23 pt states he is still having pain in both legs but the veins on the lower leg on left side is what he is more concern about. He says he usd compression stocking years ago in [place] but has not since Display Fabrication Supervisor Required: Yes Display [employer] Supervisor Name: leroy owens Accompanied by: Spouse Allergies Seasonal Allergies Allergy (Mild, Verified 03/12/23 13:10) Unknown HPI FU US HPI Details Very pleasant 57-year-old gentleman presents for follow-up regarding pain and discomfort of the lower extremities. He does note some swelling but in general he notes pain in the lateral aspect of the right hip. In addition he complains of some left ankle put lean but that is secondary to an injury where he had some plating and screwing after that. He does note some varicosities on the dorsum of the left foot. He now presents for follow-up with venous insufficiency testing. Of note he does require the use of a cane for balance. [facility] Medical History Encounter to establish care Surgical History History of esophagogastroduodenoscopy (EGD) History of colonoscopy History of ankle surgery Social History Alcohol intake: never Patient Tobacco Use Status: Never used Tobacco e-Cigarette/Vaping Use: Never Used service: No Current occupational status: unemployed Cognitive needs: Yes Hearing needs: No Vision needs: No Review of Systems Const All systems reviewed & are unremarkable except as noted in HPI and below Reports no additional complaints ENT Reports Normal hearing present Card Denies chest pain, Denies chest pain at rest, Denies chest pain with activity and Denies pedal edema Resp Denies cough GI Denies abdominal pain Musc Denies abnormal gait, Denies muscle cramps and Denies radiating pain into limb Skin/Breast Denies skin ulcer and Denies wounds Neuro Reports Normal hearing present and Denies abnormal gait Psych Reports no additional complaints Physical Exam Const General: cooperative, healthy appearing and comfortable Orientation/consciousness: oriented to person, oriented to place and oriented to time HEENT Head: Yes normal to inspection Neck Neck: Yes normal visual inspection Carotids: no bruits Chest Chest palpation & inspection: normal inspection of the chest Resp Effort & Inspection: normal respiratory effort and able to speak in complete sentences Auscultation: clear to auscultation bilaterally, no crackles, no rales, no rhonchi and no wheezes Cardio Rate: regular rate Rhythm: regular rhythm Heart sounds: S1 normal heart sound present and S2 normal heart sound present Bruits: no carotid bruits Peripheral pulses: Peripheral pulses 2+ throughout GI Inspection: Yes normal to inspection Skin Wounds: no wounds Hair: normal Neuro General: oriented to person, oriented to place and oriented to time Cranial nerves: Yes CN's II-XII intact bilaterally and Yes Normal hearing present Cognition (Neuro): normal cognition Motor exam (neuro): 5/5 motor strength present throughout Extrem Other: venous exam: +1 edema General: No clubbing, No cyanosis and Yes edema Psych Appearance: grossly normal Mental Status: mental status grossly normal Speech and movement: Normal speech and movement present Results Reviewed Results Reviewed: Brief summary of venous insufficiency testing is as follows: right great saphenous vein: negative right small saphenous vein: negative right accessory vein: none present left great saphenous vein: negative left small saphenous vein: negative left accessory vein: none present Please note there is no evidence of any venous aneurysms or significant tortuosity Assessment & Plan Assessment & Plan (1) Left leg pain: Code(s): M79.605 - Pain in left leg Plan: In short patient has lower extremity pain. It does not appear to be vascular in nature as the patient does have palpable arterial pulses and venous insufficiency testing has shown to be negative. There may be a neurogenic component to this with his sciatic nerve in addition there is a musculoskeletal component in particular the left ankle after surgery. At the current time would only recommend conservative measures including compression elevation and exercise. He will follow up with us on an as-needed basis. Thank you for allowing us to assist in his care. Coding Level of Care Code Est Pt Level 4 (94998) Diagnoses Left leg pain M79.605
== END 2023-03-12 13:33 | disposition home or self-care (01) ==
PROVIDERS: PCP Nurse Practitioner Family; Visit Provider Surgery Vascular Surgery
DX: M79.605 Pain in left leg (principal)
CPT/HCPCS: 99213

== ENCOUNTER → 2023-03-12 13:00 | Outpatient (BNVA) | payer OTHER, SELFPAY | PROVIDERS: PCP Nurse Practitioner Family; Visit Provider Surgery Vascular Surgery | DX: M79.605 Pain in left leg (principal) | CPT/HCPCS: 99212 ==

== ENCOUNTER 2023-03-19 11:34 | Outpatient (AMB) | payer OTHER, SELFPAY ==
[2023-03-19 11:39] VITALS: BP 116/74; PULSE 86; O2SAT 98; BMI 28.1
--- NOTE | 2023-03-19 11:39 | A.OFFPC_ITS ---
Vital Signs 03/19/23 11:39 Height 5 ft 3.5 in Weight 161 lb BMI 28.1 BP 116/74 Blood Pressure Location Lt brachial Position Sitting Pulse 86 Pulse Source Pulse Oximeter Pulse Oximetry (%) 98 Oxygen Delivery Method Room Air Intake Visit Reasons: F/U on depression Intake Note: Patient is here to follow up on depression Energy Conservation Representative Required: Yes Energy Conservation Representative Language: Italian Allergies Seasonal Allergies Allergy (Mild, Verified 03/19/23 11:46) Unknown Medication List - Last Reconciled 03/19/23 by ARIEL Bliss acetaminophen (Tylenol Extra Strength) 1,000 mg PO Q6H PRN cane As directed cetirizine (Zyrtec) 10 mg PO DAILY PRN cyclobenzaprine 5 mg PO Q12H PRN fluticasone propionate 50 mcg/actuation (Flonase Allergy Relief) 1 spray intra nasal DAILY gabapentin 300 mg PO BEDTIME 30 days hydroxyzine HCl 10 mg PO TID PRN lidocaine 5% 1 patch topical DAILY 30 days lorazepam 0.5 mg PO BID PRN miscellaneous medical supply 1 ea miscellaneous DAILY omeprazole 20 mg PO DAILY sertraline 100 mg PO DAILY trazodone 50 mg PO BEDTIME Tobacco use date assessed: 03/19/23 Dental Screening Dental Screen Date: 03/19/23 Did you have a dental visit in the last 12 months?: Yes Did you have a dental problem in the last 6 months where you did not have access to dental care?: No Was dental information given to patient?: Patient has dentist HPI F/U on depression HPI Details Patient is a 58-year-old male who presents today to follow-up on depression. Medical history significant for anxiety, lumbar radiculopathy right-was seen by Neurology-reports will be having another back MRI-ambulates with a cane, GERD, depression, impingement syndrome of left shoulder-followed by [facility]. Patient reports that he started seeing psychiatrist and therapist and his sertraline was increased to 100 mg daily. Also he is now on trazodone and Ativan as needed. Shortness of breath or chest pain. Patient is a Italian-speaking and Tila was helping with interpretation. [facility] Medical History Encounter to establish care Surgical History History of esophagogastroduodenoscopy (EGD) History of colonoscopy History of ankle surgery Social History Alcohol intake: never Patient Tobacco Use Status: Never used Tobacco e-Cigarette/Vaping Use: Never Used service: No Current occupational status: unemployed Cognitive needs: Yes Hearing needs: No Vision needs: No Questionnaire PHQ-9 Over the last 2 weeks, how often have you been bothered by any of the following problems? 1. Little interest or pleasure in doing things: nearly every day (pt is currently seeing psychiatrist) 2. Feeling down, depressed, or hopeless: nearly every day 3. Trouble falling or staying asleep, or sleeping too much: nearly every day 4. Feeling tired or having little energy: nearly every day 5. Poor appetite or overeating: nearly every day 6. Feeling bad about yourself - or that you are a failure or have let yourself or your family down: nearly every day 7. Trouble concentrating on things, such as reading the newspaper or watching television: nearly every day 8. Moving or speaking so slowly that other people could have noticed. Or the opposite - being so fidgety or restless that you have been moving around a lot more than usual: nearly every day 9. Thoughts that you would be better off or of hurting yourself in some way: not at all Total score: 24 Depression Screening Interpretation: Positive Depression Screening Follow-up: Existing condition and In treatment Depression Screening Done: Yes 70860 - PHQ-9 Billing: Yes Source: Developed by Drs. Natanael Espinal, Silvia Boswell, Isacc López and colleagues, with an educational og from [employer]. Thrive Questionnaire Date Thrive assessed: 09/12/22 AUDIT C Alcohol Use Questionnaire (AUDIT-C) 1. How often do you have a drink containing alcohol?: Never 2. How many drinks containing alcohol do you have on a typical day when you are drinking?: 1 or 2 3. How often do you have six or more drinks on one occasion?: Never Total Score: 0 Score Reviewed/Action Taken: No CHERELLE-7 AMB Questionnaire CHERELLE-7 Date CHERELLE - 7 assessed: 03/19/23 Feeling nervous, anxious, or on edge: 1 = Several days Not being able to stop or control worryin = Not at all Worrying too much about different things: 0 = Not at all Trouble relaxin = Not at all Being so restless that it is hard to sit still: 0 = Not at all Becoming easily annoyed or irritable: 0 = Not at all Feeling afraid as if something awful might happen: 0 = Not at all Total CHERELLE-7 score (0-4 normal; 5-9 mild; 10-14 moderate; 15-21 severe): 1 Source: Developed by Drs. Natanael Espinal, Silvia Boswell, Isacc López and colleagues, with an educational og from [employer]. CHERELLE-7 Assessment Billing CHERELLE-7 Assessment Tool: CHERELLE-7 Assessment 79791 Review of Systems Const Denies body aches, Denies chills, Denies fever(s) and Denies headache(s) ENT Denies dizziness, Denies otalgia, Denies headache(s), Denies nasal discharge, Denies sinus pain and Denies sore throat Card Denies chest pain, Denies edema, Denies lightheadedness and Denies dyspnea Resp Denies cough, Denies dyspnea and Denies wheezing GI Denies constipation, Denies diarrhea, Denies nausea and Denies vomiting Denies dysuria Musc Reports back pain, Denies myalgias and Reports arthralgias Skin/Breast Denies rash Neuro Denies dizziness and Denies headache(s) Aller/Immun Denies wheezing Physical exam (Primary Care) Vital Signs: Last Vital Signs Pulse 86 03/19/23 11:39 BP 116/74 03/19/23 11:39 Pulse Ox 98 03/19/23 11:39 Oxygen Delivery Method Room Air 03/19/23 11:39 BMI result Body Mass Index 28.1 Tobacco/Smoking Status: Tobacco use Status Tobacco use date assessed 03/19/23 03/19/23 11:43 Patient Tobacco Use Status Never used Tobacco 03/19/23 11:43 e-Cigarette/Vaping Use Never Used 03/19/23 11:43 PHQ-9: PHQ-9 Score PHQ-9: Total score 24 03/19/23 11:46 Depression Screening Interpretation: Positive Depression Screening Follow-up: Existing condition and In treatment Thrive Assessment: Date of Thrive Assessment Date Thrive assessed 09/12/22 03/19/23 11:43 Const Other: Patient ambulates with a cane General: cooperative and no acute distress Orientation/consciousness: patient oriented x3 HENMT Head: Yes normocephalic and Yes atraumatic Ears: TM's normal bilaterally Face and sinus: Yes sinuses nontender Mouth: oropharynx normal and moist mucous membranes Throat: Yes posterior oropharynx normal Eyes General: appearance normal, both eyes and all related structures Neck Neck: Yes normal visual inspection and Yes full ROM Resp Effort & Inspection: normal respiratory effort and able to speak in complete sentences Auscultation: clear to auscultation bilaterally, no crackles, no rales, no rhonchi and no wheezes Cardio Rate: regular rate Rhythm: regular rhythm Heart sounds: S1 normal heart sound present and S2 normal heart sound present GI Auscultation: normal bowel sounds Skin General skin exam: no rashes or lesions noted Neuro General: patient oriented x3 Extrem General: Yes full ROM and No edema Assessment and Plan Assessment & Plan (1) Anxiety: Code(s): F41.9 - Anxiety disorder, unspecified Plan: Continue to follow-up with therapist and psychiatrist Dr. Fernandez Continue sertraline 100 mg daily Continue Ativan b.i.d. p.r.n. as prescribed by Psychiatry Continue hydroxyzine t.i.d. p.r.n. (2) Lumbar radiculopathy: Code(s): M54.16 - Radiculopathy, lumbar region Plan: Patient was seen by [facility] who referred patient to see Neurology - patient reports he will be having another back MRI Continue gabapentin, Tylenol, cyclobenzaprine, lidocaine patch (3) Depression: Code(s): F32.A - Depression, unspecified Qualifiers: Depression Type: other depression Qualified Code(s): F32.89 - Other specified depressive episodes Plan: Continue to follow-up with therapist and psychiatrist Dr. Fernandez Continue sertraline 100 mg daily Plan Follow-up in 3 months or sooner as needed Medications: Refilled lidocaine 5% 1 patch topical DAILY 30 days 30 ea 0RF pain M47.816 - Spondylosis without myelopathy or radiculopathy, lumbar region, M54.16 - Radiculopathy, lumbar region Coding Level of Care Code Est Pt Level 3 (98746) Diagnoses Anxiety F41.9 Lumbar radiculopathy M54.16 Other depression F32.89 Depression Type: other depression Additional Codes CHERELLE-7 Assessment Billing - CHERELLE-7 Assessment Tool: CHERELLE-7 Assessment 45491 ([id number])
== END 2023-03-19 12:07 | disposition home or self-care (01) ==
PROVIDERS: PCP Nurse Practitioner Family; Visit Provider Nurse Practitioner Family
DX: F41.9 Anxiety disorder, unspecified (principal); M54.16 Radiculopathy, lumbar region; F32.89 Other specified depressive episodes
CPT/HCPCS: 96127; 99213

== ENCOUNTER 2023-03-26 13:57 | Outpatient (REF) | payer OTHER, SELFPAY ==
--- NOTE | 2023-03-26 15:31 | MHC.AU.HA2 ---
Hearing Instrument Fitting- Adult- Binaural Date of Visit: 03/26/23 Hearing Instruments Dispensed: Right Ear: Make, Model, Color, Serial Number: Oticon REAL 2 miniRITE-R SN: [id number] Color: Chroma Beige Vascular Ultrasound Technician Repair Warranty: 03/08/2026 Vascular Ultrasound Technician Loss and Damage Warranty: 03/08/2026 [facility] Service Plan: 03/26/2024 Battery Size: Rechargeable Forensics Team Director/Slim Tube: 2/85 Earmold/Dome/CShell/SlimTip: 6mm double betts dome (no retention tail) Type of Wax Guard: miniFit Left Ear: Make, Model, Color, Serial Number: Oticon REAL 2 miniRITE-R SN: [id number] Color: Chroma Beige Vascular Ultrasound Technician Repair Warranty: 03/08/2026 Vascular Ultrasound Technician Loss and Damage Warranty: 03/08/2026 [facility] Service Plan: 03/26/2024 Battery Size: Rechargeable Forensics Team Director/Slim Tube: 2/85 Earmold/Dome/CShell/SlimTip: 6mm double betts dome (no retention tail) Type of Wax Guard: miniFit Accessories/Assistive Technology: Drill Press Operator Helper SN: [id number] Summary of Fitting: Performed real ear measures and feedback analyzer. Then decreased to AM1 due to perceived loudness. Discussed care, use, and rechargeability including manually turning on/off, volume control use, and changing domes and wax guards. Practiced insertion/removal. Ney was able to manipulate the hearing aids with ease. Some concern with domes staying in his ears. Tried 8mm double betts dome but could not insert deep enough. 6mm insertion depth better and improved comfort per Ney; however, seemed to work its way out of ear. Ney opted to try as is for now. Will need to reassess at follow up and possibly add retention tail. Did not discuss bluetooth or pair to cellphone at this time. Recommendations: A hearing instrument follow-up was scheduled. Diagnosis Code(s): Primary Diagnosis: H90.3 Bilateral Sensorineural Hearing Loss Signature: Provider: Jessica Hutchins, [facility]
== END 2023-03-26 13:58 | disposition home or self-care (01) ==
LOC: HO.HAP 13:57
PROVIDERS: Visit Provider Nurse Practitioner Family
DX: Z46.1 Encounter for fitting and adjustment of hearing aid (principal); H90.3 Sensorineural hearing loss, bilateral
CPT/HCPCS: V5011; V5020; V5160; V5261

== ENCOUNTER 2023-04-10 11:40 | Outpatient (AMB) | payer OTHER, SELFPAY ==
--- NOTE | 2023-04-10 11:42 | MHC.OFFVIS ---
Intake Vital Signs 04/10/23 11:46 Height 5 ft 3.5 in Weight 161 lb BMI 28.1 Intake Visit Reasons: OV-Pain left shoulder-Follow up Intake Note: Cem 57 year old male who presents today with spouse for a follow up of left shoulder pain, last inj 01/09/23. Patient states he would like to repeat injection due to his last one giving him 3 months of relief. He denies any fevers or chills. He has done physical therapy exercises which aggravated his pain. He has also tried Tylenol and anti-inflammatory medicines which gave him minimal relief. Patient denies any weakness in his left shoulder. Allergies Seasonal Allergies Allergy (Mild, Verified 04/10/23 11:45) Unknown Medication List - Last Reconciled 04/10/23 by Nicolás Devlin MD acetaminophen (Tylenol Extra Strength) 1,000 mg PO Q6H PRN cane As directed cetirizine (Zyrtec) 10 mg PO DAILY PRN cyclobenzaprine 5 mg PO Q12H PRN fluticasone propionate 50 mcg/actuation (Flonase Allergy Relief) 1 spray intranasal DAILY gabapentin 300 mg PO BEDTIME 30 days hydroxyzine HCl 10 mg PO TID PRN lidocaine 5% 1 patch topical DAILY 30 days lorazepam 0.5 mg PO BID PRN miscellaneous medical supply 1 ea miscellaneous DAILY omeprazole 20 mg PO DAILY sertraline 100 mg PO DAILY trazodone 50 mg PO BEDTIME PFSH Medical History Encounter to establish care Surgical History History of esophagogastroduodenoscopy (EGD) History of colonoscopy History of ankle surgery Social History Alcohol intake: never Patient Tobacco Use Status: Never used Tobacco e-Cigarette/Vaping Use: Never Used service: No Current occupational status: unemployed Cognitive needs: Yes Hearing needs: No Vision needs: No Physical Exam Vital Signs: BMI result Body Mass Index 28.1 Const Other: Well-nourished well-developed very friendly male awake alert and oriented x3 in no acute distress Extrem Other: Bilateral upper extremity examination shows good capillary refill, no skin lesions noted, normal sensation light touch Left shoulder examination shows almost full range of motion when compared to his right shoulder, 4+ out of 5 strength with supraspinatus testing, positive impingement signs, tenderness over his acromioclavicular joint, no instability Office Procedures Joint Injection/Drain Joint Injection/Drain Primary Site: left shoulder Injected: 40 mg of, DepoMedrol and 1% plain lidocaine Procedure: The patient tolerated the procedure well Coding 64375 - Large joint Procedure code (CPT) selection complete Assessment & Plan Assessment & Plan (1) Impingement syndrome of left shoulder: Code(s): M75.42 - Impingement syndrome of left shoulder Plan Mr. Nehemias Whitley presents with left shoulder pain due to impingement syndrome and rotator cuff tendinosis. I had a lengthy discussion with the patient regarding the treatment options. He wishes to hold off on surgery for as long as possible. I agree with this plan. The risks and benefits of a left shoulder cortisone injection were discussed at length with the patient. The patient wished to proceed. He tolerated the injection well. He will continue with his home exercise program. He will follow up with me on an as-needed basis should his symptoms not plateau at an unacceptable level over the next few months. Feel free to call me at any time should questions regarding his orthopedic management arise. I spent 22 minutes in reviewing the patient's records and imaging studies, seeing the patient and documenting in the medical record. Orders: Orders AMB Joint Injection/Aspiration Today M75.42 - Impingement syndrome of left shoulder Coding Level of Care Code Est Pt Level 2 (10773) Diagnoses Impingement syndrome of left shoulder M75.42 CPT Codes Coding - Large joint: 34111 - Large joint ([id number])
[2023-04-10 11:46] VITALS: BMI 28.1
== END 2023-04-10 12:01 | disposition home or self-care (01) ==
PROVIDERS: PCP Nurse Practitioner Family; Visit Provider Orthopaedic Surgery
DX: M75.42 Impingement syndrome of left shoulder (principal)
CPT/HCPCS: 20610; 99213

== ENCOUNTER → 2023-04-10 11:40 | Outpatient (BNVA) | payer OTHER, SELFPAY | PROVIDERS: PCP Nurse Practitioner Family; Visit Provider Orthopaedic Surgery | DX: M75.42 Impingement syndrome of left shoulder (principal) | CPT/HCPCS: 20610; 99212; J1020 ==

== ENCOUNTER 2023-04-17 09:38 | Outpatient (REF) | payer OTHER, SELFPAY | END 2023-04-17 09:39 | disposition home or self-care (01) | LOC: HO.HAP 09:38 | PROVIDERS: Visit Provider Nurse Practitioner Family | DX: Z13.89 Encounter for screening for other disorder (principal) ==

== ENCOUNTER 2023-06-04 09:42 | Outpatient (AMB) | payer OTHER, SELFPAY ==
--- NOTE | 2023-06-04 09:46 | A.OFFPC_ITS ---
Vital Signs 06/04/23 09:47 Height 5 ft 3.5 in Weight 164 lb BMI 28.6 BP 122/72 Blood Pressure Location Lt brachial Position Sitting Intake Visit Reasons: Transfer of Care Dr. Madrigal ( Depression) Intake Note: Patient here for transfer of care/ depression Senior Nuclear Medicine Technologist Required: No Accompanied by: Spouse Allergies Seasonal Allergies Allergy (Mild, Verified 06/04/23 10:01) Unknown Medication List - Last Reconciled 06/04/23 by Mariana Lagos MD acetaminophen (Tylenol Extra Strength) 1,000 mg PO Q6H PRN buspirone 5 mg PO BID cane As directed cetirizine (Zyrtec) 10 mg PO DAILY PRN cyclobenzaprine 5 mg PO Q12H PRN fluticasone propionate 50 mcg/actuation (Flonase Allergy Relief) 1 spray intranasal DAILY gabapentin 300 mg PO BEDTIME 30 days lidocaine 5% 1 patch topical DAILY 30 days lorazepam 0.5 mg PO BID PRN miscellaneous medical supply 1 ea miscellaneous DAILY omeprazole 20 mg PO DAILY quetiapine 25 mg PO BEDTIME sertraline 100 mg PO DAILY Tobacco use date assessed: 06/04/23 Dental Screening Dental Screen Date: 06/04/23 Did you have a dental visit in the last 12 months?: Yes Did you have a dental problem in the last 6 months where you did not have access to dental care?: No Was dental information given to patient?: Patient has dentist HPI HPI Comments History of Present Illness Details This is a 58-year-old male with mild major depression, anxiety and GERD that comes accompanied by complaining of right inguinal pain that has bothered him for the past few months. Depression stable with SSRIs and this is follow by Psychiatry. Anxiety well controlled with buspirone and is follow by Psychiatry also. GERD stable with PPIs. He walks with a cane for gait stability due to chronic low back pain. Was seen by surgeon last year but surgeon was waiting for neurosurgeon to evaluate him. Ultrasound of the abdomen and labs would be order regarding this matter. [facility] [place] Medical History (Updated 06/04/23 @ 10:46 by Mariana Lagos MD) Encounter to establish care Surgical History History of esophagogastroduodenoscopy (EGD) History of colonoscopy History of ankle surgery Family History Paternal Grandfather Cancer Father Cancer Mother Heart attack Social History Housing: Apartment Alcohol intake: never Patient Tobacco Use Status: Never used Tobacco e-Cigarette/Vaping Use: Never Used Second Hand Smoke Exposure: No service: No Current occupational status: unemployed Cognitive needs: Yes Hearing needs: Yes Vision needs: No Questionnaire PHQ-9 Over the last 2 weeks, how often have you been bothered by any of the following problems? 1. Little interest or pleasure in doing things: several days 2. Feeling down, depressed, or hopeless: several days 3. Trouble falling or staying asleep, or sleeping too much: not at all 4. Feeling tired or having little energy: several days 5. Poor appetite or overeating: not at all 6. Feeling bad about yourself - or that you are a failure or have let yourself or your family down: several days 7. Trouble concentrating on things, such as reading the newspaper or watching television: nearly every day 8. Moving or speaking so slowly that other people could have noticed. Or the opposite - being so fidgety or restless that you have been moving around a lot more than usual: several days 9. Thoughts that you would be better off or of hurting yourself in some way: not at all Total score: 8 Depression Screening Interpretation: Positive Depression Screening Follow-up: Existing condition, In treatment and Community Mental Health Worker F/U Depression Screening Done: Yes 88338 - PHQ-9 Billing: Yes Source: Developed by Drs. Natanael Esipnal, Silvia Boswell, Isacc López and colleagues, with an educational og from [employer]. Thrive Questionnaire Date Thrive assessed: 06/04/23 I am a: Patient What is your living situation today?: I have a steady place to live Within the past 12 months, did the food you bought not last and you didn't have the money to get more?: Never true Within the past 12 months, did you worry whether your food would run out before you got money to buy more?: Never true Do you have trouble paying for medicines?: No Do you have trouble getting transportation to medical appointments?: No Do you have trouble paying your heating and electricity bill?: No Do you have trouble taking care of your child, family member or friend?: No Do you have trouble with day-to-day activities such as bathing, preparing meals, shopping, managing finances, etc.?: No Are you currently unemployed and looking for a job?: No Are you interested in more education?: No Please select the resources that you would like help with: None Currently or been in a relationship where the following occur: no concerns reported THRIVE Score: 0 AUDIT C Alcohol Use Questionnaire (AUDIT-C) 1. How often do you have a drink containing alcohol?: Never Total Score: 0 CHERELLE-7 AMB Questionnaire CHERELLE-7 Date CHERELLE - 7 assessed: 06/04/23 Feeling nervous, anxious, or on edge: 1 = Several days Not being able to stop or control worryin = Several days Worrying too much about different things: 3 = Nearly every day Trouble relaxin = Not at all Being so restless that it is hard to sit still: 0 = Not at all Becoming easily annoyed or irritable: 1 = Several days Feeling afraid as if something awful might happen: 1 = Several days Total CHERELLE-7 score (0-4 normal; 5-9 mild; 10-14 moderate; 15-21 severe): 7 Source: Developed by Drs. Natanael Espinal, Silvia Boswell, Isacc López and colleagues, with an educational og from [employer]. CHERELLE-7 Assessment Billing CHERELLE-7 Assessment Tool: CHERELLE-7 Assessment 15463 Review of Systems Const All systems reviewed & are unremarkable except as noted in HPI and below Eyes Reports no additional complaints, Denies change in vision and Denies other visual disturbances Card Denies chest pain at rest, Denies chest pain with activity, Denies edema, Denies irregular heart rhythm, Denies claudication, Denies dyspnea, Denies dyspnea on exertion, Denies orthopnea, Denies paroxysmal nocturnal dyspnea and Denies slow heart rate Resp Denies cough, Denies dyspnea and Denies dyspnea on exertion GI Denies abdominal pain, Denies change in bowel habits, Denies excessive flatus, Denies nausea and Denies vomiting Denies urinary hesitancy, Denies urinary incontinence and Denies urinary urgency Musc Denies atrophy, Denies deformity and Denies limited range of motion Neuro Denies confusion Psych Denies confusion Physical exam (Primary Care) Vital Signs: Last Vital Signs BP 122/72 06/04/23 09:47 BMI result Body Mass Index 28.6 Tobacco/Smoking Status: Tobacco use Status Tobacco use date assessed 06/04/23 06/04/23 09:57 Patient Tobacco Use Status Never used Tobacco 06/04/23 09:57 e-Cigarette/Vaping Use Never Used 06/04/23 09:57 PHQ-9: PHQ-9 Score PHQ-9: Total score 8 06/04/23 10:06 Depression Screening Interpretation: Positive Depression Screening Follow-up: Existing condition, In treatment and Community Mental Health Worker F/U Thrive Assessment: Date of Thrive Assessment Date Thrive assessed 06/04/23 06/04/23 09:57 Currently or been in a relationship where the following occur: no concerns reported Const General: No confusion Orientation/consciousness: patient oriented x3 and No confusion Eyes General: appearance normal, both eyes and all related structures Eyelids: Yes eyelids normal Conjunctivae: conjunctivae normal Neck Neck: Yes normal visual inspection and Yes supple Resp Effort & Inspection: normal respiratory effort Auscultation: clear to auscultation bilaterally Cardio Jugular venous distension: no JVD Rate: regular rate Rhythm: regular rhythm Heart sounds: S1 normal heart sound present and S2 normal heart sound present GI Inspection: Yes normal to inspection Palpation (GI): Soft to palpation, nontender and Hernia present direct inguinal on the right Auscultation: normal bowel sounds Skin General skin exam: no rashes or lesions noted Neuro General: patient oriented x3, no focal motor deficits and No confusion Extrem General: Yes full ROM Psych Appearance: grossly normal Assessment and Plan Assessment & Plan (1) Right inguinal hernia: Code(s): K40.90 - Unilateral inguinal hernia, without obstruction or gangrene, not specified as recurrent Plan: Ultrasound of the abdomen ordered. (2) GERD (gastroesophageal reflux disease): Code(s): K21.9 - Gastro-esophageal reflux disease without esophagitis Plan: Continue PPIs as needed. (3) Anxiety: Code(s): F41.9 - Anxiety disorder, unspecified Plan: Continue buspirone. Follow-up with psychiatry. (4) Mild major depression: Code(s): F32.0 - Major depressive disorder, single episode, mild Plan: Continue SSRIs. Follow-up with psychiatry. Orders: Orders Comprehensive [place]. Panel Fast Today K40.90 - Unilateral inguinal hernia, without obstruction or gangrene, not specified as recurrent Lipid Panel Today E78.5 - Hyperlipidemia, unspecified US abdomen complete Today K40.90 - Unilateral inguinal hernia, without obstruction or gangrene, not specified as recurrent Complete Blood Count Auto Diff Today K40.90 - Unilateral inguinal hernia, without obstruction or gangrene, not specified as recurrent Coding Level of Care Code Est Pt Level 4 (42784) Diagnoses Right inguinal hernia K40.90 GERD (gastroesophageal reflux disease) K21.9 Anxiety F41.9 Mild major depression F32.0 Additional Codes CHERELLE-7 Assessment Billing - CHERELLE-7 Assessment Tool: CHERELLE-7 Assessment 37339 ([id number]) Time Spent (min) 24
[2023-06-04 09:47] VITALS: BP 122/72; BMI 28.6
== END 2023-06-04 10:13 | disposition home or self-care (01) ==
PROVIDERS: PCP Nurse Practitioner Family; Visit Provider Internal Medicine
DX: K40.90 Unilateral inguinal hernia, without obstruction or gangrene, not specified as recurrent (principal); K21.9 Gastro-esophageal reflux disease without esophagitis; F41.9 Anxiety disorder, unspecified; F32.0 Major depressive disorder, single episode, mild
CPT/HCPCS: 99214

== ENCOUNTER 2023-06-11 07:37 | Outpatient (REF) | payer OTHER, SELFPAY ==
[2023-06-11 08:01] LABS: MANUAL DIFF FLAG NO
[2023-06-11 08:39] LABS: Basophils Absolute Auto 0.1 X10*3/uL (0.0-0.2); Basophils Percent Auto 1.5 % (0-2); Eosinophils Absolute Auto 0.2 X10*3/uL (0.0-0.4); Eosinophils Percent Auto 2.1 % (0-4); Hematocrit 48.3 % (42.0-52.0); Hemoglobin 15.9 g/dl (14.0-18.0); Imm Gran Abs Auto 0.03 X10*3/uL (0.00-0.03); Imm Gran Pct Auto 0.4 % (0.0-0.4); Lymphocytes Percent Auto 27.9 % (20-40); Mean Corpuscular HGB Conc 32.9 g/dl (31.0-36.0); Mean Corpuscular Hemoglobin 27.3 pg (27.0-33.0); Mean Corpuscular Volume 82.8 fL (80.0-98.0); Mean Platelet Volume 8.9 fL (9.4-12.4); Monocytes Absolute Auto 0.7 X10*3/uL (0.1-1.2); Monocytes Percent Auto 9.8 % (2-11); Neutrophils Absolute Auto 4.2 x10*3/uL (2.0-8.3); Neutrophils Percent Auto 58.3 % (45-73); Platelet Count 351 X10*3/uL (160-400); Red Blood Count 5.83 X10*6/uL (4.60-5.80); Red Cell Distribution Width 13.1 % (11.0-16.0); White Blood Count 7.2 X10*3/uL (4.8-10.8)
[2023-06-11 09:13] LABS: Alanine Aminotransferase 19 U/L (0-40); Albumin Level 4.4 g/dL (3.5-5.0); Alkaline Phosphatase 87 U/L (39-117); Anion Gap 14 (12-20); Aspartate Amino Transferase 16 U/L (5-37); Bilirubin Total 1.3 mg/dL (0.0-1.0); Blood Urea Nitrogen 16 mg/dL (9-16); Calcium 9.6 mg/dL (8.4-10.2); Carbon Dioxide 25 mmol/L (22-29); Chloride 105 mmol/L (96-108); Cholesterol 213 mg/dL (<200); Estimated Glomerular Filt Rate > 60; Glucose Fasting 100 mg/dL (60-99); HDL Cholesterol 56 mg/dL (>40); LDL Cholesterol Calculated 140 mg/dL (<100); Potassium 4.5 mmol/L (3.3-5.1); Sodium 139 mmol/L (135-145); Total Protein 7.3 g/dL (6.5-8.0); Triglycerides 89 mg/dL (<150)
== END 2023-06-11 07:38 | disposition home or self-care (01) ==
LOC: HO.LAB 07:37
PROVIDERS: PCP Internal Medicine; Visit Provider Internal Medicine
DX: K40.90 Unilateral inguinal hernia, without obstruction or gangrene, not specified as recurrent (principal); E78.5 Hyperlipidemia, unspecified
CPT/HCPCS: 36415; 80053; 80061; 85025

== ENCOUNTER 2023-06-26 13:59 | Outpatient (REF) | payer OTHER, SELFPAY ==
--- NOTE | ~2023-06-26 | US_ITS ---
EXAMINATION: US BILATERAL, LIMITED/FOLLOW UP CLINICAL INFORMATION: Right inguinal hernia. COMPARISON: None available. TECHNIQUE: Targeted ultrasound images were obtained by the dormitory maid of the area of concern as indicated by the patient in the right inguinal region. Radiologist was not in attendance. Images were later provided for interpretation. FINDINGS: In the area of concern indicated by the patient to the dormitory maid in the right inguinal region there is a focal 0.5 cm defect characteristic of a hernia defect with small area of soft tissue suggestive of a small right inguinal hernia. In the area of concern indicated by the patient in the left inguinal region there is a focal 0.7 cm defect characteristic of a hernia defect with associated small hernia. Per dormitory maid, this increases to 1.4 cm with cough with a small hernia. US/US pelvic limited IMPRESSION: Possible small bilateral inguinal hernias, left greater than right. CT scan of the abdomen and pelvis without intravenous contrast recommended for further evaluation.
== END 2023-06-26 14:00 | disposition home or self-care (01) ==
LOC: HO.US 13:59
PROVIDERS: PCP Internal Medicine; Visit Provider Internal Medicine
DX: K40.90 Unilateral inguinal hernia, without obstruction or gangrene, not specified as recurrent (principal)
CPT/HCPCS: 76857

== ENCOUNTER 2023-07-10 09:42 | Outpatient (AMB) | payer OTHER, SELFPAY ==
--- NOTE | 2023-07-10 09:55 | A.OFFVIS_ITS ---
Intake Vital Signs 07/10/23 10:07 Weight 158 lb BP 135/78 Blood Pressure Location Rt brachial Position Sitting Pulse 85 Intake Visit Reasons: Bilateral inguinal hernia Intake Note: Patient referred by PCP Dr. Berkowitz for bilateral inguinal hernia. Present for 1.5yr Patient c/o: pain. Pain constant as living on 3rd floor. Pelvic US: 06-26-23. Retail Project Merchandiser Required: Yes Retail Project Merchandiser Name: Muna PHAN Accompanied by: Spouse Allergies Seasonal Allergies Allergy (Mild, Verified 07/10/23 10:04) Unknown HPI HPI Comments History of Present Illness Details Patient presents with his significant other. He has bilateral inguinal hernias. He has had these over a year and half this time. They are both increasing in size and becoming more symptomatic especially the right side. Patient does occasionally heavy lifting. He otherwise is tolerating a diet having regular bowel habits. Chart was reviewed and patient evaluated [facility] Medical History Encounter to establish care Surgical History (Updated 07/10/23 @ 10:31 by Sherif Voss MD) Hx of tonsillectomy History of esophagogastroduodenoscopy (EGD) History of colonoscopy History of ankle surgery Family History Paternal Grandfather Cancer Father Cancer Mother Heart attack Social History Housing: Apartment Alcohol intake: never Patient Tobacco Use Status: Never used Tobacco e-Cigarette/Vaping Use: Never Used Second Hand Smoke Exposure: No service: No Current occupational status: unemployed Cognitive needs: Yes Hearing needs: Yes Vision needs: No Physical Exam Vital Signs: Last Vital Signs Pulse 85 07/10/23 10:07 BP 135/78 07/10/23 10:07 Const Other: Patient requires a cane because of back issues. Chest Other: Chest breath sounds bilaterally, HS 1 in 2 GI Other: Patient was examined both supine and standing with Valsalva. Patient has a massive reducible right inguinal hernia. Genitalia within normal limits. Moderately sized left inguinal hernia. Abdomen otherwise soft benign Assessment & Plan Assessment & Plan (1) Left inguinal hernia: Code(s): K40.90 - Unilateral inguinal hernia, without obstruction or gangrene, not specified as recurrent (2) Right inguinal hernia: Code(s): K40.90 - Unilateral inguinal hernia, without obstruction or gangrene, not specified as recurrent Plan Risks, benefits, alternatives of bilateral open inguinal hernia repair with mesh reviewed the patient included but not limited to bleeding, infection, recurrence, numbness, pain, scarring the patient wished to proceed. All questions answered. Arrangements were made for this. Coding Level of Care Code New Pt Level 5 (85564) Diagnoses Left inguinal hernia K40.90 Right inguinal hernia K40.90
[2023-07-10 10:07] VITALS: BP 135/78; PULSE 85
== END 2023-07-10 10:26 | disposition home or self-care (01) ==
PROVIDERS: PCP Internal Medicine; Visit Provider Surgery
DX: K40.90 Unilateral inguinal hernia, without obstruction or gangrene, not specified as recurrent (principal)
CPT/HCPCS: 99204

== ENCOUNTER → 2023-07-10 09:42 | Outpatient (BNVA) | payer OTHER, SELFPAY | PROVIDERS: PCP Internal Medicine; Visit Provider Surgery | DX: K40.90 Unilateral inguinal hernia, without obstruction or gangrene, not specified as recurrent (principal) | CPT/HCPCS: 99202 ==

== ENCOUNTER 2023-07-11 11:00 | Outpatient (AMB) | payer OTHER, SELFPAY ==
--- NOTE | 2023-07-11 11:16 | MHC.OFFVIS ---
Intake Vital Signs 07/11/23 11:17 Height 5 ft 3 in Weight 158 lb BMI 28.0 Intake Visit Reasons: OV-Pain left shoulder-Follow up Intake Note: Ney is a 58 year old male who presents with Left shoulder pain. Patient reports his last injection of his Left shoulder was on 04/10/2023 and it gave him good relief for about 3 months. He states he would like to repeat the Left shoulder injection. He wishes to hold off on surgery for as long as possible. Allergies Seasonal Allergies Allergy (Mild, Verified 07/11/23 11:18) Unknown Medication List - Last Reconciled 07/11/23 by Nicolás Devlin MD acetaminophen (Tylenol Extra Strength) 1,000 mg PO Q6H PRN atorvastatin 10 mg PO BEDTIME 90 days buspirone 5 mg PO BID cane As directed cetirizine (Zyrtec) 10 mg PO DAILY PRN cyclobenzaprine 5 mg PO Q12H PRN fluticasone propionate 50 mcg/actuation (Flonase Allergy Relief) 1 spray intranasal DAILY gabapentin 300 mg PO BEDTIME 30 days lidocaine 5% 1 patch topical DAILY 30 days lorazepam 0.5 mg PO BID PRN miscellaneous medical supply 1 ea miscellaneous DAILY omeprazole 20 mg PO DAILY quetiapine 25 mg PO BEDTIME sertraline 100 mg PO DAILY PFSH Medical History Encounter to establish care Surgical History Hx of tonsillectomy History of esophagogastroduodenoscopy (EGD) History of colonoscopy History of ankle surgery Family History Paternal Grandfather Cancer Father Cancer Mother Heart attack Social History Housing: Apartment Alcohol intake: never Patient Tobacco Use Status: Never used Tobacco e-Cigarette/Vaping Use: Never Used Second Hand Smoke Exposure: No service: No Current occupational status: unemployed Cognitive needs: Yes Hearing needs: Yes Vision needs: No Physical Exam Vital Signs: BMI result Body Mass Index 28.0 Const Other: Well-nourished well-developed very friendly male awake alert and oriented x3 in no acute distress Extrem Other: Bilateral upper extremity examination shows good capillary refill, no skin lesions noted, normal sensation light touch Left shoulder examination shows almost full range of motion when compared to his right shoulder, 4+ out of 5 strength with supraspinatus testing, positive impingement signs, tenderness over his acromioclavicular joint, no instability Office Procedures Joint Injection/Drain Joint Injection/Drain Primary Site: left shoulder Prep: site was prepped using aseptic technique Injected: 40 mg of, DepoMedrol and 1% plain lidocaine Procedure: The patient tolerated the procedure well Coding - Large joint Procedure code (CPT) selection complete Assessment & Plan Assessment & Plan (1) Left shoulder pain: Code(s): M25.512 - Pain in left shoulder Plan Mr. Nehemias Whitley presents with left shoulder pain due to impingement syndrome and rotator cuff tendinosis versus possible rotator cuff tearing. I had a lengthy discussion with the patient regarding the treatment options. The risks and benefits of a left shoulder cortisone injection were discussed at length with the patient. The patient wished to proceed with the injection. He tolerated the injection well. He will continue with his home exercise program. Will follow up with me on an as-needed basis should his symptoms not plateau at an unacceptable level over the next few months. I spent 19 minutes in reviewing the patient's records and imaging studies, seeing the patient and documenting in the medical record. Orders: Orders AMB Joint Injection/Aspiration Today M25.512 - Pain in left shoulder Coding Level of Care Code Est Pt Level 2 (41479) Diagnoses Left shoulder pain M25.512 CPT Codes Coding - Large joint: 02069 - Large joint ([id number])
[2023-07-11 11:17] VITALS: BMI 28.0
== END 2023-07-11 11:34 | disposition home or self-care (01) ==
PROVIDERS: PCP Nurse Practitioner Family; Visit Provider Orthopaedic Surgery
DX: M25.512 Pain in left shoulder (principal)
CPT/HCPCS: 20610; 99213

== ENCOUNTER → 2023-07-11 11:00 | Outpatient (BNVA) | payer OTHER, SELFPAY | PROVIDERS: PCP Nurse Practitioner Family; Visit Provider Orthopaedic Surgery | DX: M25.512 Pain in left shoulder (principal) | CPT/HCPCS: 20610; 99212; J1020 ==

== ENCOUNTER 2023-07-26 09:42 | Outpatient (REF) | payer OTHER, SELFPAY ==
--- NOTE | ~2023-07-26 | MR_ITS ---
EXAMINATION: MR PELVIS WITHOUT AND WITH CONTRAST CLINICAL INFORMATION: Leg pain. EMG suggests proximal lesion. COMPARISON: None available. TECHNIQUE: MRI without and with intravenous administration of 7 mL of Gadavist is on the pelvis. FINDINGS: There is a moderately-sized right and a small left fat-containing inguinal hernia. No focal fluid collection or enhancing mass in the pelvis. No mass effect along the course of the lumbosacral plexus. Normal size and signal of the visualized sciatic nerves. No muscle edema or atrophy. There is a 10 mm round focus of mild T2 signal hyperintensity with low level enhancement and surrounding marrow edema at the anterior cortex of the distal right femoral neck. There is a rim of low signal intensity, likely sclerosis, with anterior cortical thickening. If this were a young adult or child, the imaging appearance would suggest an osteoid osteoma. This is of uncertain etiology, potentially inflammatory reaction at the joint capsule insertion. The possibility of a metastatic lesion is unlikely although it is difficult to completely exclude. No hip joint effusions. No fracture or evidence of avascular necrosis. MR/MR pelvis wo/w con IMPRESSION: 1. No mass or mass effect along the course of the lumbosacral plexus. 2. Moderately sized right and small left fat-containing inguinal hernia. 3. There is a 10 mm rounded focus of signal abnormality with low level enhancement and surrounding marrow edema at the anterior cortex of the distal right femoral neck. This is of uncertain etiology. If this were a young adult or child, the imaging appearance would suggest an osteoid osteoma. The possibility of a metastatic lesion is unlikely although is difficult to completely exclude. Recommend further evaluation with a right hip CT.
[2023-07-26] MEDS: gadobutroL 7.5 ML VIAL IVPUSH (11:32)
== END 2023-07-26 09:43 | disposition home or self-care (01) ==
LOC: HO.MRI 09:42
PROVIDERS: PCP Internal Medicine; Visit Provider Psychiatry & Neurology Neurology
DX: M79.606 Pain in leg, unspecified (principal)
CPT/HCPCS: 72197; A9585

== ENCOUNTER 2023-08-01 13:20 | Outpatient (REF) | payer OTHER, SELFPAY ==
--- NOTE | ~2023-08-01 | CT_ITS ---
EXAMINATION: CT ABDOMEN AND PELVIS WITHOUT CONTRAST CLINICAL INFORMATION: Bilateral inguinal hernias. COMPARISON: MR pelvis 07/26/2023, pelvic ultrasound 06/27/2023. TECHNIQUE: Multidetector volumetric imaging was performed from the superior aspect of the liver through the pubic symphysis. Sagittal and coronal reformatted images were obtained on the technologist's workstation. This CT examination was performed using dose optimization techniques as appropriate, variously including the following: *Automated exposure control. *Adjustment of mA and/or kV according to patient size (this includes techniques or standardized protocols for targeted exams where dose is matched to indication/reason for exam; i.e. extremities or head). *Use of iterative reconstruction technique. DLP: 508 mGy-cm FINDINGS: LUNG BASES: The visualized lung bases are unremarkable. Bibasilar atelectasis is present. LIVER, GALLBLADDER, AND BILIARY TREE: The liver is normal in size, shape, and attenuation. No focal hepatic lesion or biliary ductal dilatation is present. The gallbladder is unremarkable with no evidence of radiopaque gallstones, gallbladder wall thickening, or obvious pericholecystic inflammatory changes. PANCREAS: Unremarkable. SPLEEN: Unremarkable. ADRENAL GLANDS: Unremarkable. KIDNEYS AND URETERS: The kidneys are normal in size, shape, and attenuation. No hydronephrosis, hydroureter, or calculi seen. No perinephric stranding. BLADDER: Unremarkable. GASTROINTESTINAL TRACT: The small and large bowel are unremarkable. The appendix is unremarkable. ABDOMINAL WALL: Bilateral indirect inguinal hernias are present containing only fat, right significantly greater than the left. LYMPH NODES: Normal. VASCULAR: Unremarkable. PELVIC VISCERA: The prostate and seminal vesicles are unremarkable. OSSEOUS STRUCTURES: Unremarkable. CT/CT abdomen pelvis wo IV con IMPRESSION: Bilateral indirect inguinal hernias containing only fat, right significantly greater than left. Fleischner guidelines were followed.
== END 2023-08-01 13:21 | disposition home or self-care (01) ==
LOC: HO.CT 13:20
PROVIDERS: PCP Internal Medicine; Visit Provider Internal Medicine
DX: K40.20 Bilateral inguinal hernia, without obstruction or gangrene, not specified as recurrent (principal)
CPT/HCPCS: 74176

== ENCOUNTER 2023-08-15 07:23 | Day surgery (SDC) | payer OTHER, SELFPAY ==
--- NOTE | 2023-08-13 12:58 | HO.ANESPROP2 ---
Documented by User: Joan Escobar NP 08/13/23 13:00 HPI - Anesthesia Eval Consult details Narrative: 58yo M for Bilateral Hernia Inguinal Reducible with mesh PMFSH Active Problems Active Problems: All Active Problems Left inguinal hernia (Acute) Pure hypercholesterolemia (Acute) Mild major depression (Acute) Right inguinal hernia (Acute) Left leg pain (Acute) Varicose veins of left lower extremity with inflammation (Acute) Impingement syndrome of left shoulder (Acute) Bulging of cervical intervertebral disc (Acute) Varicose vein of leg (Acute) Left shoulder pain (Acute) Cervical radiculopathy (Acute) Lumbar radiculopathy, right (Acute) NSAID long-term use (Acute) Hyperlipidemia (Acute) Eye exam, routine (Acute) Seasonal allergies (Acute) Depression (Acute) Adult general medical exam (Acute) GERD (gastroesophageal reflux disease) (Acute) Diverticulosis (Acute) Lumbar degenerative disc disease (Acute) Lumbar spondylosis (Acute) Lumbar radiculopathy (Acute) Anxiety (Acute) Screening for prostate cancer (Acute) Tinnitus (Acute) Sciatica of right side (Acute) Bilateral inguinal hernia (Acute) Past Medical History Medical History Pure hypercholesterolemia Depression GERD (gastroesophageal reflux disease) Lumbar degenerative disc disease Anxiety Encounter to establish care Family History Family History Paternal Grandfather Cancer Father Cancer Mother Heart attack Surgical History Surgical History Hx of tonsillectomy History of esophagogastroduodenoscopy (EGD) History of colonoscopy History of ankle surgery Social History Social History Housing: Apartment Alcohol intake: never Patient Tobacco Use Status: Never used Tobacco e-Cigarette/Vaping Use: Never Used Second Hand Smoke Exposure: No Advance Directives: No Advance Directives Information Provided: Yes service: No Current occupational status: unemployed Cognitive needs: Yes Hearing needs: Yes Vision needs: No Meds Allergies Allergy/AdvReac Type Severity Reaction Status Date / Time Seasonal Allergies Allergy Mild Unknown Verified 08/15/23 07:47 Home Medications ?Medication ?Instructions ?Recorded ?Confirmed ?Last Taken ?Type acetaminophen 500 mg tablet 1,000 mg PO Q6H PRN Pain 12/05/22 08/15/23 Unknown History (Tylenol Extra Strength) lorazepam 0.5 mg tablet 0.5 mg PO BID PRN Anxiety 01/09/23 08/15/23 Unknown History sertraline 100 mg tablet 100 mg PO DAILY 03/19/23 08/15/23 Unknown History buspirone 5 mg tablet 5 mg PO BID 06/04/23 08/15/23 Unknown History quetiapine 25 mg tablet 25 mg PO BEDTIME 06/04/23 08/15/23 Unknown History Exam Pertinent Lab Results Pertinent Lab Results: Laboratory Tests 06/11/23 08:00 WBC 7.2 Hgb 15.9 Hct 48.3 Plt Count 351 Sodium 139 Potassium 4.5 Chloride 105 Carbon Dioxide 25 BUN 16 Creatinine 1.15 Assessment and Plan Assessment Anesthesia Assessment: Chart Reviewed Documented by User: Greta Juarez MD 08/15/23 08:01 [facility] Past Medical History Medical History Pure hypercholesterolemia Depression GERD (gastroesophageal reflux disease) Lumbar degenerative disc disease Anxiety Encounter to establish care Family History Family History Paternal Grandfather Cancer Father Cancer Mother Heart attack Family history of problems with anesthesia: No Surgical History Surgical History Hx of tonsillectomy History of esophagogastroduodenoscopy (EGD) History of colonoscopy History of ankle surgery History of Problems with Anesthesia: No Social History Social History Housing: Apartment Alcohol intake: never Patient Tobacco Use Status: Never used Tobacco e-Cigarette/Vaping Use: Never Used Second Hand Smoke Exposure: No Advance Directives: No Advance Directives Information Provided: Yes service: No Current occupational status: unemployed Cognitive needs: Yes Hearing needs: Yes Vision needs: No Meds Allergies Allergy/AdvReac Type Severity Reaction Status Date / Time Seasonal Allergies Allergy Mild Unknown Verified 08/15/23 07:47 Home Medications ?Medication ?Instructions ?Recorded ?Confirmed ?Last Taken ?Type acetaminophen 500 mg tablet 1,000 mg PO Q6H PRN Pain 12/05/22 08/15/23 Unknown History (Tylenol Extra Strength) lorazepam 0.5 mg tablet 0.5 mg PO BID PRN Anxiety 01/09/23 08/15/23 Unknown History sertraline 100 mg tablet 100 mg PO DAILY 03/19/23 08/15/23 Unknown History buspirone 5 mg tablet 5 mg PO BID 06/04/23 08/15/23 Unknown History quetiapine 25 mg tablet 25 mg PO BEDTIME 06/04/23 08/15/23 Unknown History Exam Airway Mallampati Class: II TM Dist: >3cm Neck ROM: Full Heart: rrr Lungs: cta Assessment and Plan Assessment Anesthesia Assessment: Anesthesia Plan Discussed Final Anesthetic Review Family History of Problems with Anesthesia: No History of Problems with Anesthesia: No NPO: Yes ASA Class: III Final Preanesthetic Review: No Changes in Pt Med Stat, Meds/Allgs Chart Reviewed, Consent Obtained/Reviewed and Anes Risks/Benef Reviewed Patient Risk: Intermediate Procedure Risk: Intermediate Anesthetic Plan Anesthetic Plan: GA Disposition: Standard PACU
--- NOTE | 2023-08-14 15:03 | MHC.SHP ---
Pre-Procedural Eval Section A - 24 Hr Update-Section A only Date of Service: 08/14/23 The patient is an INPATIENT: No Changes since office visit: No Cold of Flu in the past 2 weeks, No New Medical Problems, No Changes in Medication and No Patient answered all questions Section B - Complete if H&P > 30 days Chief Complaint: Unilateral inguinal hernia, without obstruction or Allergies: Allergies Allergy/AdvReac Type Severity Reaction Status Date / Time Seasonal Allergies Allergy Mild Unknown Verified 07/11/23 11:18 Plan I have reviewed the history and physical and performed a pertinent physical examination on my patient. No changes have occurred unless specified. Time Spent With Patient Time: Total time managing care of this patient today ____ minutes.
[2023-08-15] VITALS (7 sets, daily range): BP systolic 113–131; BP diastolic 64–89; PULSE 59–82; RESP 14–16; TEMP 36.2–36.8; O2SAT 95–98; BMI 24.9
[2023-08-15] MEDS: Lactated Ringers 1,000 ML 100 ML IVCONT (08:23)
--- NOTE | 2023-08-15 08:56 | MHC.SHP ---
Pre-Procedural Eval Section A - 24 Hr Update-Section A only Date of Service: 08/15/23 The patient is an INPATIENT: No Changes since office visit: No Cold of Flu in the past 2 weeks, No New Medical Problems, No Changes in Medication and No Patient answered all questions The patient has been examined within 24 hours of the surgical procedure. The History & Physical has been completed within 30 days and I have reviewed it.: Yes Section B - Complete if H&P > 30 days Chief Complaint: Unilateral inguinal hernia, without obstruction or Details of Present Illness: Bilateral inguinal hernia repair with mesh Allergies: Allergies Allergy/AdvReac Type Severity Reaction Status Date / Time Seasonal Allergies Allergy Mild Unknown Verified 08/15/23 07:47 Plan I have reviewed the history and physical and performed a pertinent physical examination on my patient. No changes have occurred unless specified. Time Spent With Patient Time: Total time managing care of this patient today ____ minutes.
--- NOTE | 2023-08-15 10:41 | P.OP_ITS ---
Operative Note Operative Note Date of Service: 08/15/23 Narrative: Preoperative diagnosis: [] Bilateral inguinal hernias Postop diagnosis: [] The same Procedure [] bilateral open inguinal herniorrhaphy with Bard mesh Surgeon; Bipin Hernandez; Katie Type of Anesthesia: [] General Indication for surgery: [] Moderately sized left inguinal hernia. No direct hernia demonstrated. Very large indirect right inguinal hernia. No direct hernia demonstrated. Findings: [] Patient brought to the operating room, placed on operative table supine position, after adequate level of general anesthesia was induced, bilateral groin areas were prepped and draped in usual sterile fashion. Commencing with the left side, a small left para inguinal incision was made and carried down through skin, subcutaneous tissue, Flakito's fascia. External oblique fibers were opened their direction with care to isolate and preserve the ilioinguinal nerve throughout the procedure. Spermatic cord was identified and retracted from the field. No indirect hernia was demonstrated on cord explorat ion. Direct hernia was found and a Bard plug was placed in this defect and sutured inferiorly to the inguinal ligament, and superiorly to the transversalis fascia using interrupted 0 Ethibond suture. At completion of procedure, wound was irrigated, secured hemostasis, and closed in the following manner; external oblique fascia was closed using running 2-0 Vicryl suture. Flakito's fascia was reapproximated using interrupted 3-0 Vicryl suture. Interrupted inverted deep dermal 3-0 Vicryl sutures followed by running subcuticular 4-0 Vicryl sutures were placed. Steri-Strips and sterile dressings were applied. Contralateral right groin underwent a mirror image incision and carried down through skin, subcutaneous tissue, Flakito's fascia. External oblique fibers were opened their direction with care to isolate and preserve the ilioinguinal nerve throughout the procedure. Exploration of the cord demonstrated a very large indirect hernia which was reduced. No direct hernia was demonstrated. A Bard plug was placed in the indirect defect, and sutured inferiorly to the inguinal ligament, and superiorly to the transversalis fascia using interrupted 0 Ethibond suture. At completion of the procedure, plug also covered inguinal floor completely. Wounds irrigated, secured hemostasis, and closed in the following manner; external oblique fascia was closed using running 2-0 Vicryl suture. Flakito's fascia was reapproximated using interrupted 3-0 Vicryl sutures. Interrupted inverted deep dermal 3-0 Vicryl sutures followed by running subcuticular 4-0 Vicryl sutures were placed. Steri-Strips and sterile dressings were applied. Sponge, needle, and instrument counts reported correct. Patient tolerated procedure well and emerged from anesthesia in stable condition. Bilateral t esticles were intrascrotal at completion of the procedure. Wounds were infiltrated with ilioinguinal block at the beginning of the case and locally at the incision sites using 0.5% Marcaine/1% lidocaine. EBL minimal
[2023-08-15] MEDS: Ondansetron ODT 4 MG TAB.RAPDIS TRANSLINGU (11:49)
== END 2023-08-15 12:01 | disposition home or self-care (01) ==
PROVIDERS: PCP Internal Medicine; Visit Provider Surgery
PROC: (CPT 49505; principal; 2023-08-15 09:30)
DX: K40.90 Unilateral inguinal hernia, without obstruction or gangrene, not specified as recurrent (principal); K21.9 Gastro-esophageal reflux disease without esophagitis; E78.00 Pure hypercholesterolemia, unspecified; M51.36 Other intervertebral disc degeneration, lumbar region; J30.2 Other seasonal allergic rhinitis; F32.A Depression, unspecified; Z79.899 Other long term (current) drug therapy; Z56.0 Unemployment, unspecified
CPT/HCPCS: 49505; C1781; J0131; J0690; J1100; J1170; J2250; J2371; J2704; J2795; J3010

== ENCOUNTER → 2023-08-15 07:23 | Outpatient (BNV) | payer OTHER, SELFPAY | PROVIDERS: PCP Internal Medicine; Visit Provider Surgery | DX: K40.20 Bilateral inguinal hernia, without obstruction or gangrene, not specified as recurrent (principal) | CPT/HCPCS: 49505 ==

== ENCOUNTER 2023-08-26 08:58 | Outpatient (AMB) | payer OTHER, SELFPAY ==
--- NOTE | 2023-08-26 09:13 | A.OFFVIS_ITS ---
Intake Visit Reasons: S/P BIH w/mesh Intake Note: Patient here s/p BIH w/mesh. Reports incisions healing well. Patient c/o:no longer taking rx pain meds. Steward/Stewardess Tourist Class Required: No Accompanied by: Daughter Allergies Seasonal Allergies Allergy (Mild, Verified 08/26/23 09:14) Unknown HPI Comments Details: Patient presents with his significant other follow-up. He has tolerating a diet. He is having regular bowel habits. He is increasing his activity level. He has minimal incisional discomfort. [facility] Medical History Bilateral inguinal hernia (08/15/23) Pure hypercholesterolemia Depression GERD (gastroesophageal reflux disease) Lumbar degenerative disc disease Anxiety Encounter to establish care Surgical History Hx of tonsillectomy History of esophagogastroduodenoscopy (EGD) History of colonoscopy History of ankle surgery Family History Paternal Grandfather Cancer Father Cancer Mother Heart attack Social History Housing: Apartment Alcohol intake: never Patient Tobacco Use Status: Never used Tobacco e-Cigarette/Vaping Use: Never Used Second Hand Smoke Exposure: No service: No Current occupational status: unemployed Cognitive needs: Yes Hearing needs: Yes Vision needs: No Physical Exam GI Other: Abdomen is soft. Bilateral groin incision exam is within normal limits, wound healing well. Assessment & Plan Assessment & Plan (1) Status post bilateral inguinal hernia repair, follow-up exam: Code(s): Z09 - Encounter for follow-up examination after completed treatment for conditions other than malignant neoplasm; Z87.19 - Personal history of other diseases of the digestive system Category: Medical Plan Patient has been given local instructions including avoiding strenuous activities for next few weeks time and will otherwise follow-up p.r.n.. All questions answered
== END 2023-08-26 09:18 | disposition home or self-care (01) ==
PROVIDERS: PCP Internal Medicine; Visit Provider Surgery
DX: Z09 Encounter for follow-up examination after completed treatment for conditions other than malignant neoplasm (principal); Z87.19 Personal history of other diseases of the digestive system
CPT/HCPCS: 99024

== ENCOUNTER → 2023-08-26 08:58 | Outpatient (BNVA) | payer OTHER, SELFPAY | PROVIDERS: PCP Internal Medicine; Visit Provider Surgery | DX: Z09 Encounter for follow-up examination after completed treatment for conditions other than malignant neoplasm (principal); Z87.19 Personal history of other diseases of the digestive system | CPT/HCPCS: 99212 ==

== ENCOUNTER 2023-09-11 15:21 | Outpatient (AMB) | payer OTHER, SELFPAY ==
--- NOTE | 2023-09-11 15:52 | A.OFFPC_ITS ---
Vital Signs 09/11/23 15:53 Height 5 ft 4 in Weight 153 lb BMI 26.3 BP 120/70 Blood Pressure Location Lt brachial Position Sitting Intake Visit Reasons: [place] [facility] Intake Note: Patient here [place] [facility] [place] 08[place]14 Weld Inspector Required: No Accompanied by: Spouse Allergies Seasonal Allergies Allergy (Mild, Verified 09/11/23 16:04) Unknown Medication List - Last Reconciled 09/11/23 by Mariana Lagos MD acetaminophen (Tylenol Extra Strength) 1,000 mg PO Q6H PRN atorvastatin 10 mg PO BEDTIME 90 days buspirone 5 mg PO BID cane As directed cetirizine (Zyrtec) 10 mg PO DAILY PRN cyclobenzaprine 5 mg PO Q12H PRN fluticasone propionate 50 mcg/actuation (Flonase Allergy Relief) 1 spray intranasal DAILY gabapentin 300 mg PO BEDTIME 30 days hydrocodone-acetaminophen 5-325 mg 1 tab PO Q4-6H PRN lidocaine 5% 1 patch topical DAILY 30 days lorazepam 0.5 mg PO BID PRN miscellaneous medical supply 1 ea miscellaneous DAILY omeprazole 20 mg PO DAILY quetiapine 25 mg PO BEDTIME sertraline 100 mg PO DAILY [Shower Chair As directed] Tobacco use date assessed: 06/04/23 Dental Screening Dental Screen Date: 06/04/23 HPI HPI Comments History of Present Illness Details This is a 58-year-old male with mild major depression, generalized anxiety disorder, hyperlipidemia, GERD, chronic lumbar radiculopathy and seasonal allergies that comes accompanied by for follow-up on his conditions. Depression and anxiety has been stable with medications and this is follow by Psychiatry. On statins for his elevated cholesterol. GERD stable with PPIs. Complains of chronic neck pain and back pain due to cervical and lumbar radiculopathy that makes it difficult to him to climb stairs. He does live in 3rd floor and will benefit from moving to the 1st floor. Walks with a cane for gait stability and occasionally use a walker. He is accompanied by today. On antihistamines as needed for his seasonal allergies. [facility] Medical History (Updated 09/11/23 @ 21:04 by Mariana Lagos MD) Bilateral inguinal hernia (08/15/23) Pure hypercholesterolemia Depression GERD (gastroesophageal reflux disease) Lumbar degenerative disc disease Anxiety Encounter to establish care Surgical History H/O hernia repair Hx of tonsillectomy History of esophagogastroduodenoscopy (EGD) History of colonoscopy History of ankle surgery Family History Paternal Grandfather Cancer Father Cancer Mother Heart attack Social History Housing: Apartment Alcohol intake: never Patient Tobacco Use Status: Never used Tobacco e-Cigarette/Vaping Use: Never Used Second Hand Smoke Exposure: No service: No Current occupational status: unemployed Cognitive needs: Yes Hearing needs: Yes Vision needs: No Questionnaire Thrive Questionnaire Date Thrive assessed: 06/04/23 CHERELLE-7 AMB Questionnaire CHERELLE-7 Date CHERELLE - 7 assessed: 06/04/23 Source: Developed by Drs. Natanael Espinal, Silvia Boswell, Isacc López and colleagues, with an educational og from [employer]. Review of Systems Const All systems reviewed & are unremarkable except as noted in HPI and below Card Denies chest pain at rest, Denies chest pain with activity, Denies edema, Denies irregular heart rhythm, Denies claudication, Denies dyspnea, Denies dyspnea on exertion, Denies orthopnea, Denies paroxysmal nocturnal dyspnea and Denies slow heart rate Resp Denies cough, Denies dyspnea and Denies dyspnea on exertion GI Denies abdominal pain, Denies change in bowel habits, Denies excessive flatus, Denies nausea and Denies vomiting Physical exam (Primary Care) Vital Signs: Last Vital Signs BP 120/70 09/11/23 15:53 BMI result Body Mass Index 26.3 Tobacco/Smoking Status: Tobacco use Status Tobacco use date assessed 06/04/23 09/11/23 15:56 Patient Tobacco Use Status Never used Tobacco 09/11/23 15:56 e-Cigarette/Vaping Use Never Used 09/11/23 15:56 Thrive Assessment: Date of Thrive Assessment Date Thrive assessed 06/04/23 09/11/23 15:56 Const Limitations: ambulation with cane Resp Effort & Inspection: normal respiratory effort Auscultation: clear to auscultation bilaterally Cardio Rate: regular rate Rhythm: regular rhythm Heart sounds: S1 normal heart sound present and S2 normal heart sound present Extrem General: Yes full ROM Assessment and Plan Assessment & Plan (1) Mild major depression: Code(s): F32.0 - Major depressive disorder, single episode, mild Plan: Continue sertraline and Seroquel. Follow-up with psychiatry. (2) GERD (gastroesophageal reflux disease): Code(s): K21.9 - Gastro-esophageal reflux disease without esophagitis Plan: Continue PPIs. (3) Lumbar radiculopathy: Code(s): M54.16 - Radiculopathy, lumbar region Plan: Continue gabapentin. (4) CHERELLE (generalized anxiety disorder): Code(s): F41.1 - Generalized anxiety disorder Plan: Continue buspirone. Use benzodiazepines as needed. Follow-up with psychiatry. (5) Hyperlipidemia: Code(s): E78.5 - Hyperlipidemia, unspecified Plan: Continue statins. (6) Seasonal allergies: Code(s): J30.2 - Other seasonal allergic rhinitis Plan: Continue antihistamines as needed. Orders: Orders T Spot TB Today Z11.1 - Encounter for screening for respiratory tuberculosis XR chest 2V Today Z92.89 - Personal history of other medical treatment Coding Level of Care Code Est Pt Level 4 (92682) Diagnoses Mild major depression F32.0 GERD (gastroesophageal reflux disease) K21.9 Lumbar radiculopathy M54.16 CHERELLE (generalized anxiety disorder) F41.1 Hyperlipidemia E78.5 Seasonal allergies J30.2 Time Spent (min) 25
[2023-09-11 15:53] VITALS: BP 120/70; BMI 26.3
== END 2023-09-11 16:18 | disposition home or self-care (01) ==
PROVIDERS: PCP Internal Medicine; Visit Provider Internal Medicine
DX: F32.0 Major depressive disorder, single episode, mild (principal); K21.9 Gastro-esophageal reflux disease without esophagitis; M54.16 Radiculopathy, lumbar region; F41.1 Generalized anxiety disorder; E78.5 Hyperlipidemia, unspecified; J30.2 Other seasonal allergic rhinitis
CPT/HCPCS: 99214

== ENCOUNTER 2023-09-18 07:24 | Outpatient (REF) | payer OTHER, SELFPAY ==
--- NOTE | ~2023-09-18 | XR_ITS ---
EXAMINATION: XR CHEST CLINICAL INFORMATION: Personal history of other medical treatment Chest pain COMPARISON: None available. TECHNIQUE: 2 views of the chest were obtained. FINDINGS: The lungs are well expanded. There is mild streaky opacity at the left lung base which may represent atelectasis and/or pneumonia. No interstitial pulmonary edema or pneumothorax. No pleural effusion. No significant abnormality is noted involving the heart, mediastinum, bony thorax or soft tissues. XR/XR chest 2V IMPRESSION: Left lower lobe atelectasis and/or pneumonia.
[2023-09-21 12:38] LABS: TS Negative Control Passed; TS Panel A 0; TS Panel B 0; TS Positive Control Passed; TSpotTB Negative (Negative)
== END 2023-09-18 07:25 | disposition home or self-care (01) ==
LOC: HO.LAB 07:24
PROVIDERS: Visit Provider Internal Medicine
DX: Z11.1 Encounter for screening for respiratory tuberculosis (principal); Z92.89 Personal history of other medical treatment
CPT/HCPCS: 36415; 71046; 86481

== ENCOUNTER 2023-10-16 09:33 | Outpatient (AMB) | payer OTHER, SELFPAY ==
--- NOTE | 2023-10-16 09:48 | A.OFFVIS_ITS ---
Vital Signs 10/16/23 10:07 Height 5 ft 4 in Weight 153 lb BMI 26.3 Intake Visit Reasons: OV-Pain left shoulder-Follow up Intake Note: Ney 58 year old male presents today with complaints of left shoulder pain. The patient has had cortisone injections in the past which gave him fairly good relief. He denies any weakness. He describes his pain as sharp in nature. Mos t of the pain is along the lateral aspect of his left shoulder. Has taken Tylenol which gives him mild relief. He has also done physical therapy exercises which aggravated his pain. He wishes to hold off on surgery for as long as possible. Retail Sales Manager Required: Yes Retail Sales Manager Name: [id number] Allergies Seasonal Allergies Allergy (Mild, Verified 10/16/23 10:03) Unknown Medication List - Last Reconciled 10/17/23 by Nicolás Devlin MD acetaminophen (Tylenol Extra Strength) 1,000 mg PO Q6H PRN atorvastatin 10 mg PO BEDTIME 90 days azithromycin 250 mg PO DIRECTED 5 days buspirone 5 mg PO BID cane As directed cetirizine (Zyrtec) 10 mg PO DAILY PRN cyclobenzaprine 5 mg PO Q12H PRN fluticasone propionate 50 mcg/actuation (Flonase Allergy Relief) 1 spray intranasal DAILY gabapentin 300 mg PO BEDTIME 30 days hydrocodone-acetaminophen 5-325 mg 1 tab PO Q4-6H PRN lidocaine 5% 1 patch topical DAILY 30 days lorazepam 0.5 mg PO BID PRN miscellaneous medical supply 1 ea miscellaneous DAILY omeprazole 20 mg PO DAILY quetiapine 25 mg PO BEDTIME sertraline 50 mg PO DAILY [Shower Chair As directed] [facility] Medical History (Updated 10/06/23 @ 08:28 by Mariana Lagos MD) Bilateral inguinal hernia (08/15/23) Pure hypercholesterolemia Depression GERD (gastroesophageal reflux disease) Lumbar degenerative disc disease Anxiety Encounter to establish care Surgical History H/O hernia repair Hx of tonsillectomy History of esophagogastroduodenoscopy (EGD) History of colonoscopy History of ankle surgery Family History Paternal Grandfather Cancer Father Cancer Mother Heart attack Social History Housing: Apartment Alcohol intake: never Patient Tobacco Use Status: Never used Tobacco e-Cigarette/Vaping Use: Never Used Second Hand Smoke Exposure: No service: No Current occupational status: unemployed Cognitive needs: Yes Hearing needs: Yes Vision needs: No Physical Exam Vital Signs: BMI result Body Mass Index 26.3 Const Other: Well-nourished well-developed very friendly male awake alert and oriented x3 in no acute distress Extrem Other: Bilateral upper extremity examination shows good capillary refill, no skin lesions noted, normal sensation light touch Left shoulder examination shows full range of motion when compared to his right shoulder, 5/5 strength with supraspinatus testing, positive impingement signs, no instability Office Procedures Joint Injection/Drain Joint Injection/Drain Primary Site: left shoulder Prep: site was prepped using aseptic technique Injected: 40 mg of, DepoMedrol and 1% plain lidocaine Procedure: The patient tolerated the procedure well Coding 14358 - Large joint Procedure code (CPT) selection complete Assessment & Plan Assessment & Plan (1) Impingement syndrome of left shoulder: Code(s): M75.42 - Impingement syndrome of left shoulder Category: Medical Plan Mr. Nehemias Whitley presents with left shoulder pain due to impingement syndrome. I had a lengthy discussion with the patient regarding the treatment options. He wishes to hold off on surgery for as long as possible. I agree with this plan. The risks and benefits of a left shoulder cortisone injection were discussed at length with the patient. The patient wished to proceed with the injection. He tolerated the injection well. Will continue with his activity modifications. He will follow up with me on an as-needed basis should his symptoms not plateau at an unacceptable level over the next few months. Feel free to call me at any time should questions regarding his orthopedic management arise. I spent 20 minutes in reviewing the patient's records and imaging studies, seeing the patient and documenting in the medical record. Orders: Orders AMB Joint Injection/Aspiration 10/16/23 M75.42 - Impingement syndrome of left shoulder Coding Level of Care Code Est Pt Level 3 (85959) Diagnoses Impingement syndrome of left shoulder M75.42 CPT Codes Coding - 23084 Large joint: 39478 - Large joint ([id number])
[2023-10-16 10:07] VITALS: BMI 26.3
== END 2023-10-16 10:20 | disposition home or self-care (01) ==
PROVIDERS: PCP Nurse Practitioner Family; Visit Provider Orthopaedic Surgery
DX: M75.42 Impingement syndrome of left shoulder (principal)
CPT/HCPCS: 20610; 99213

== ENCOUNTER → 2023-10-16 09:33 | Outpatient (BNVA) | payer OTHER, SELFPAY | PROVIDERS: PCP Nurse Practitioner Family; Visit Provider Orthopaedic Surgery | DX: M75.42 Impingement syndrome of left shoulder (principal) | CPT/HCPCS: 20610; 99212; J1010 ==

== ENCOUNTER 2023-10-21 14:22 | Outpatient (AMB) | payer OTHER, SELFPAY ==
[2023-10-21 14:23] VITALS: BP 120/82; PULSE 69; O2SAT 98; BMI 26.0
--- NOTE | 2023-10-21 14:23 | A.OFFPC_ITS ---
Vital Signs 10/21/23 14:23 Height 5 ft 4 in Weight 151 lb 4 oz BMI 26.0 BP 120/82 Blood Pressure Location Lt brachial Position Sitting Pulse 69 Pulse Source Pulse Oximeter Pulse Oximetry (%) 98 Oxygen Delivery Method Room Air Intake Visit Reasons: pe Intake Note: Patient is here today for a physical. 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 Required: No Accompanied by: Self / Same As Patient Allergies Seasonal Allergies Allergy (Mild, Verified 10/21/23 14:45) Unknown Medication List - Last Reconciled 10/21/23 by Mariana Lagos MD acetaminophen (Tylenol Extra Strength) 1,000 mg PO Q6H PRN atorvastatin 10 mg PO BEDTIME 90 days buspirone 5 mg PO BID cane As directed cetirizine (Zyrtec) 10 mg PO DAILY PRN cyclobenzaprine 5 mg PO Q12H PRN fluticasone propionate 50 mcg/actuation (Flonase Allergy Relief) 1 spray intranasal DAILY gabapentin 300 mg PO BEDTIME 30 days hydrocodone-acetaminophen 5-325 mg 1 tab PO Q4-6H PRN lidocaine 5% 1 patch topical DAILY 30 days lorazepam 0.5 mg PO BID PRN miscellaneous medical supply 1 ea miscellaneous DAILY omeprazole 20 mg PO DAILY quetiapine 25 mg PO BEDTIME sertraline 50 mg PO DAILY [Shower Chair As directed] Tobacco use date assessed: 10/21/23 Dental Screening Dental Screen Date: 10/21/23 Did you have a dental visit in the last 12 months?: No Did you have a dental problem in the last 6 months where you did not have access to dental care?: No HPI HPI Comments History of Present Illness Details This is a 58-year-old male that comes for his physical exam. Last colonoscopy was 2021 and was normal as per patient. Walks with a cane for gait stability due to left sciatica that is relieved by Tylenol. Complains of some blurry vision and would like ophthalmology referral. No chest pain or shortness on breath. Labs were discussed and he is on rosuvastatin for his cholesterol. Has mild major depression with anxiety and is follow by counseling and psychiatry. [facility] Medical History Bilateral inguinal hernia (08/15/23) Pure hypercholesterolemia Depression GERD (gastroesophageal reflux disease) Lumbar degenerative disc disease Anxiety Encounter to establish care Surgical History H/O hernia repair Hx of tonsillectomy History of esophagogastroduodenoscopy (EGD) History of colonoscopy History of ankle surgery Family History (Updated 10/21/23 @ 14:52 by Mariana Lagos MD) Paternal Grandfather Cancer Father Cancer Mother Heart attack Essential hypertension Diabetes mellitus Social History (Updated 10/21/23 @ 14:52 by Mariana Lagos MD) Housing: Apartment Alcohol intake: former Patient Tobacco Use Status: Former Tobacco user e-Cigarette/Vaping Use: Never Used Second Hand Smoke Exposure: No service: No Current occupational status: unemployed Cognitive needs: Yes Hearing needs: Yes Vision needs: No Questionnaire PHQ-9 Over the last 2 weeks, how often have you been bothered by any of the following problems? 1. Little interest or pleasure in doing things: several days 2. Feeling down, depressed, or hopeless: several days 3. Trouble falling or staying asleep, or sleeping too much: not at all 4. Feeling tired or having little energy: several days 5. Poor appetite or overeating: not at all 6. Feeling bad about yourself - or that you are a failure or have let yourself or your family down: several days 7. Trouble concentrating on things, such as reading the newspaper or watching television: nearly every day 8. Moving or speaking so slowly that other people could have noticed. Or the opposite - being so fidgety or restless that you have been moving around a lot more than usual: several days 9. Thoughts that you would be better off or of hurting yourself in some way: not at all Total score: 8 Depression Screening Interpretation: Positive Depression Screening Follow-up: Existing condition, In treatment, Community Mental Health Worker F/U and Follow- up Visit Requested Depression Screening Done: Yes 38318 - PHQ-9 Billing: Yes Source: Developed by Drs. Natanael Espinal, Silvia Boswell, Isacc López and colleagues, with an educational og from [employer]. Thrive Questionnaire Date Thrive assessed: 10/21/23 I am a: Patient What is your living situation today?: I have a steady place to live Within the past 12 months, did the food you bought not last and you didn't have the money to get more?: Never true Within the past 12 months, did you worry whether your food would run out before you got money to buy more?: Never true Do you have trouble paying for medicines?: No Do you have trouble getting transportation to medical appointments?: No Do you have trouble paying your heating and electricity bill?: No Do you have trouble taking care of your child, family member or friend?: No Do you have trouble with day-to-day activities such as bathing, preparing meals, shopping, managing finances, etc.?: No Are you currently unemployed and looking for a job?: No Are you interested in more education?: No Please select the resources that you would like help with: None Currently or been in a relationship where the following occur: no concerns reported THRIVE Score: 0 AUDIT C Alcohol Use Questionnaire (AUDIT-C) 1. How often do you have a drink containing alcohol?: Never 3. How often do you have six or more drinks on one occasion?: Never Total Score: 0 CHERELLE-7 AMB Questionnaire CHERELLE-7 Date CHERELLE - 7 assessed: 10/21/23 Feeling nervous, anxious, or on edge: 0 = Not at all Not being able to stop or control worryin = Several days Worrying too much about different things: 0 = Not at all Trouble relaxin = Not at all Being so restless that it is hard to sit still: 0 = Not at all Becoming easily annoyed or irritable: 0 = Not at all Feeling afraid as if something awful might happen: 0 = Not at all Total CHERELLE-7 score (0-4 normal; 5-9 mild; 10-14 moderate; 15-21 severe): 1 Source: Developed by Drs. Natanael Espinal, Silvia Boswell, Isacc López and colleagues, with an educational og from [employer]. CHERELLE-7 Assessment Billing CHERELLE-7 Assessment Tool: CHERELLE-7 Assessment 24364 Review of Systems Const All systems reviewed & are unremarkable except as noted in HPI and below Card Denies chest pain at rest, Denies chest pain with activity, Denies edema, Denies irregular heart rhythm, Denies claudication, Denies dyspnea, Denies dyspnea on exertion, Denies orthopnea, Denies paroxysmal nocturnal dyspnea and Denies slow heart rate Resp Denies cough, Denies dyspnea and Denies dyspnea on exertion GI Denies abdominal pain, Denies change in bowel habits, Denies excessive flatus, Denies nausea and Denies vomiting Neuro Denies behavioral changes and Denies confusion Psych Denies behavioral changes and Denies confusion Physical exam (Primary Care) Vital Signs: Last Vital Signs Pulse 69 10/21/23 14:23 BP 120/82 10/21/23 14:23 Pulse Ox 98 10/21/23 14:23 Oxygen Delivery Method Room Air 10/21/23 14:23 BMI result Body Mass Index 26.0 Tobacco/Smoking Status: Tobacco use Status Tobacco use date assessed 10/21/23 10/21/23 14:24 Patient Tobacco Use Status Former Tobacco user 10/21/23 14:52 e-Cigarette/Vaping Use Never Used 10/21/23 14:52 PHQ-9: PHQ-9 Score PHQ-9: Total score 8 10/21/23 14:53 Depression Screening Interpretation: Positive Depression Screening Follow-up: Existing condition, In treatment, Community Mental Health Worker F/U and Follow- up Visit Requested Thrive Assessment: Date of Thrive Assessment Date Thrive assessed 10/21/23 10/21/23 14:36 Currently or been in a relationship where the following occur: no concerns reported Const General: No confusion Orientation/consciousness: patient oriented x3 and No confusion Limitations: ambulation with cane HENMT Head: Yes normal to inspection, Yes normocephalic and Yes atraumatic Ears: external ears normal Eyes General: appearance normal, both eyes and all related structures Eyelids: Yes eyelids normal Conjunctivae: conjunctivae normal Neck Neck: Yes normal visual inspection and Yes supple Resp Effort & Inspection: normal respiratory effort Auscultation: clear to auscultation bilaterally Cardio Jugular venous distension: no JVD Rate: regular rate Rhythm: regular rhythm Heart sounds: S1 normal heart sound present and S2 normal heart sound present GI Inspection: Yes normal to inspection Palpation (GI): Soft to palpation and nontender Auscultation: normal bowel sounds Skin General skin exam: no rashes or lesions noted Neuro General: patient oriented x3, no focal motor deficits and No confusion Extrem General: Yes full ROM Psych Appearance: grossly normal Assessment and Plan Assessment & Plan (1) Physical exam: Code(s): Z00.00 - Encounter for general adult medical examination without abnormal findings Plan: Repeat in a year. (2) Mild major depression: Code(s): F32.0 - Major depressive disorder, single episode, mild Plan: Continue sertraline. Follow-up with psychiatry and counseling. (3) Left sided sciatica: Code(s): M54.32 - Sciatica, left side Plan: Continue Tylenol as needed. (4) Blurry vision: Code(s): H53.8 - Other visual disturbances Plan: Referred to Ophthalmology. Orders: Referrals Ophthalmology Referral H53.8 - Other visual disturbances Medications: New acetaminophen ER 1,300 mg (2 x 650 mg) PO Q8H PRN 180 tabs 11RF pain 30 days M54.32 - Sciatica, left side Discontinued hydrocodone-acetaminophen 5-325 mg Partial Fill upon patient request. Discontinued Reason: Patient Completed Course 1 tab PO Q4-6H PRN 30 tabs 0RF pain Coding Level of Care Code Est Pt Level 3 (52057) Est Pt Prev Care 40-64y(87285) Diagnoses Physical exam Z00.00 Mild major depression F32.0 Left sided sciatica M54.32 Blurry vision H53.8 Additional Codes CHERELLE-7 Assessment Billing - CHERELLE-7 Assessment Tool: CHERELLE-7 Assessment 55574 ([id number]) Time Spent (min) 35
== END 2023-10-21 15:01 | disposition home or self-care (01) ==
PROVIDERS: PCP Nurse Practitioner Family; Visit Provider Internal Medicine
DX: Z00.00 Encounter for general adult medical examination without abnormal findings (principal); F33.0 Major depressive disorder, recurrent, mild; M54.32 Sciatica, left side; H53.8 Other visual disturbances
CPT/HCPCS: 99213; 99396

== ENCOUNTER 2024-05-14 08:18 | Outpatient (AMB) | payer OTHER, SELFPAY ==
[2024-05-14 08:32] VITALS: BP 122/76; PULSE 66; O2SAT 97; BMI 26.3
--- NOTE | 2024-05-14 08:32 | MHC.PC.OV ---
Vital Signs 05/14/24 08:32 Height 5 ft 4 in Weight 153 lb BMI 26.3 BP 122/76 Blood Pressure Location Lt brachial Position Sitting Pulse 66 Pulse Source Pulse Oximeter Pulse Oximetry (%) 97 Oxygen Delivery Method Room Air Intake Visit Reasons: dizziness Allergies Seasonal Allergies Allergy (Mild, Verified 05/14/24 09:02) Unknown Medication List - Last Reconciled 05/14/24 by Sekou Cobb MD acetaminophen ER 1,300 mg (2 x 650 mg) PO Q8H PRN 30 days atorvastatin 10 mg PO BEDTIME 90 days buspirone 5 mg PO BID cane As directed cetirizine (Zyrtec) 10 mg PO DAILY PRN cyclobenzaprine 5 mg PO Q12H PRN fluticasone propionate 50 mcg/actuation (Flonase Allergy Relief) 1 spray intranasal DAILY gabapentin 300 mg PO BEDTIME 30 days lidocaine 5% 1 patch topical DAILY 30 days lorazepam 0.5 mg PO BID PRN miscellaneous medical supply 1 ea miscellaneous DAILY omeprazole 20 mg PO DAILY quetiapine 25 mg PO BEDTIME sertraline 50 mg PO DAILY [Shower Chair As directed] Tobacco use date assessed: 05/14/24 Dental Screening Dental Screen Date: 05/14/24 Did you have a dental visit in the last 12 months?: Yes Did you have a dental problem in the last 6 months where you did not have access to dental care?: No Was dental information given to patient?: Patient has dentist [facility] Medical History Bilateral inguinal hernia (08/15/23) Pure hypercholesterolemia Depression GERD (gastroesophageal reflux disease) Lumbar degenerative disc disease Anxiety Encounter to establish care Surgical History H/O hernia repair Hx of tonsillectomy History of esophagogastroduodenoscopy (EGD) History of colonoscopy History of ankle surgery Family History (Updated 10/21/23 @ 14:52 by Mariana Lagos MD) Paternal Grandfather Cancer Father Cancer Mother Heart attack Essential hypertension Diabetes mellitus Social History (Updated 10/21/23 @ 14:52 by Mariana Lagos MD) Housing: Apartment Alcohol intake: former Patient Tobacco Use Status: Former Tobacco user Tobacco use type: Cigarette e-Cigarette/Vaping Use: Never Used Second Hand Smoke Exposure: No service: No Current occupational status: unemployed Cognitive needs: Yes Hearing needs: Yes Vision needs: No Questionnaire PHQ-9 Over the last 2 weeks, how often have you been bothered by any of the following problems? 1. Little interest or pleasure in doing things: several days 2. Feeling down, depressed, or hopeless: several days 3. Trouble falling or staying asleep, or sleeping too much: not at all 4. Feeling tired or having little energy: several days 5. Poor appetite or overeating: not at all 6. Feeling bad about yourself - or that you are a failure or have let yourself or your family down: several days 7. Trouble concentrating on things, such as reading the newspaper or watching television: nearly every day 8. Moving or speaking so slowly that other people could have noticed. Or the opposite - being so fidgety or restless that you have been moving around a lot more than usual: several days 9. Thoughts that you would be better off or of hurting yourself in some way: not at all Total score: 8 Depression Screening Interpretation: Positive Depression Screening Follow-up: Existing condition, In treatment, Community Mental Health Worker F/U and Follow-up Visit Requested Depression Screening Done: Yes 42524 - PHQ-9 Billing: Yes Source: Developed by Drs. Natanael Espinal, Silvia Boswell, Isacc López and colleagues, with an educational og from [employer]. Thrive Questionnaire Date Thrive assessed: 05/14/24 I am a: Patient What is your living situation today?: I have a steady place to live Within the past 12 months, did the food you bought not last and you didn't have the money to get more?: Never true Within the past 12 months, did you worry whether your food would run out before you got money to buy more?: Never true Do you have trouble paying for medicines?: No Do you have trouble getting transportation to medical appointments?: No Do you have trouble paying your heating and electricity bill?: No Do you have trouble taking care of your child, family member or friend?: No Do you have trouble with day-to-day activities such as bathing, preparing meals, shopping, managing finances, etc.?: No Are you currently unemployed and looking for a job?: No Are you interested in more education?: No Please select the resources that you would like help with: None Currently or been in a relationship where the following occur: No concerns reported THRIVE Score: 0 AUDIT C Alcohol Use Questionnaire (AUDIT-C) 1. How often do you have a drink containing alcohol?: Never 3. How often do you have six or more drinks on one occasion?: Never Total Score: 0 CHERELLE-7 AMB Questionnaire CHERELLE-7 Date CHERELLE - 7 assessed: 05/14/24 Feeling nervous, anxious, or on edge: 0 = Not at all Not being able to stop or control worryin = Several days Worrying too much about different things: 0 = Not at all Trouble relaxin = Not at all Being so restless that it is hard to sit still: 0 = Not at all Becoming easily annoyed or irritable: 0 = Not at all Feeling afraid as if something awful might happen: 0 = Not at all Total CHERELLE-7 score (0-4 normal; 5-9 mild; 10-14 moderate; 15-21 severe): 1 Source: Developed by Drs. Natanael Espinal, Silvia Boswell, Isacc López and colleagues, with an educational og from [employer]. CHERELLE-7 Assessment Billing CHERELLE-7 Assessment Tool: CHERELLE-7 Assessment 05585 Physical exam (Primary Care) Vital Signs: Last Vital Signs Pulse 66 05/14/24 08:32 BP 122/76 05/14/24 08:32 Pulse Ox 97 05/14/24 08:32 Oxygen Delivery Method Room Air 05/14/24 08:32 BMI result Body Mass Index 26.3 Tobacco/Smoking Status: Tobacco use Status Tobacco use date assessed 05/14/24 05/14/24 08:37 Patient Tobacco Use Status Former Tobacco user 05/14/24 08:37 Tobacco use type Cigarette 05/14/24 08:37 e-Cigarette/Vaping Use Never Used 05/14/24 08:37 PHQ-9: PHQ-9 Score PHQ-9: Total score 8 05/14/24 08:37 Depression Screening Interpretation: Positive Depression Screening Follow-up: Existing condition, In treatment, Community Mental Health Worker F/U and Follow-up Visit Requested Thrive Assessment: Date of Thrive Assessment Date Thrive assessed 05/14/24 05/14/24 08:37 Currently or been in a relationship where the following occur: No concerns reported Coding Level of Care Code Est Pt Level 3 (67627) Complex EM visit Add On G2211 Diagnoses Dizziness R42 Additional Codes CHERELLE-7 Assessment Billing - CHERELLE-7 Assessment Tool: CHERELLE-7 Assessment 85519 ([id number]) PHQ-9 - 37475 - PHQ-9 Billing: Yes ([id number]) Assessment & Plan Assessment & Plan (1) Dizziness: Code(s): R42 - Dizziness and giddiness Plan: Reassurance. Self limiting illness. Plan History of Present Illness The patient is a 59-year-old male presenting with dizziness. He reports experiencing minor dizziness episodes that are not severe. These episodes do not occur daily, with the last one noted on Saturday. The dizziness has been described as minor. The patient denies any associated symptoms such as blurry vision. He also denies experiencing a cold, cough, or fever. There is no noted impact on daily function, and he is currently using a cane, which has been a long-term aid rather than related specifically to the dizziness. No new medications or associated interventions have been initiated for these dizziness episodes. Social History - Language Barrier: Patient communicates in Mosotho. - Mobility: Uses a cane for ambulation; long-term use noted. Review of Systems - Ophthalmologic: Denies blurred vision. - Constitutional: Denies fever. - Respiratory: Denies cough. Physical Exam General: Cooperative and healthy appearing Nutritional Appearance: Well nourished Orientation/consciousness: Patient oriented x3 Limitations: No limitations Head: Normal to inspection General: Appearance normal, both eyes and all related structures Neck: Normal visual inspection Chest: Normal palpation of entire chest wall Respiratory: Normal respiratory effort Neurology: Patient oriented x3 Results Plan - Continue observation of dizziness as it is believed to be related to fluid behind the ear. - No medications required for the current condition. - Recommend maintaining the upcoming appointment with Dr. Berkowitz for follow-up evaluation. Patient was informed and verbally consented to the use of an ambient scribe for clinic note documentation during this visit. Discussion Notes I explained to the patient that his dizziness might be attributed to fluid behind the ears, which is a common cause of such symptoms. The condition is expected to improve on its own without the need for medication. I advised that no interventions are necessary at this time and highlighted the importance of keeping his appointment with Dr. Berkowitz for further evaluation. Multiple greetings noted should not be considered part of the interaction. Patient Instructions - Monitor dizziness and note any changes in symptoms. - No new medications needed at this time. - Attend the scheduled follow-up with Dr. Berkowitz. - Seek care sooner if dizziness worsens significantly or new symptoms develop.
== END 2024-05-14 10:03 | disposition home or self-care (01) ==
PROVIDERS: PCP Internal Medicine; Visit Provider Internal Medicine
DX: R42 Dizziness and giddiness (principal)

== ENCOUNTER → 2024-05-14 08:18 | Outpatient (BNVA) | payer OTHER, SELFPAY | PROVIDERS: PCP Internal Medicine; Visit Provider Internal Medicine | DX: R42 Dizziness and giddiness (principal) | CPT/HCPCS: 96127; 99212 ==

== ENCOUNTER 2024-08-24 07:21 | Outpatient (AMB) | payer OTHER, SELFPAY ==
--- NOTE | 2024-08-24 07:47 | MHC.PC.OV ---
Vital Signs 08/24/24 07:48 Height 5 ft 4 in Weight 152 lb BMI 26.1 BP 120/80 Blood Pressure Location Lt brachial Position Sitting Intake Visit Reasons: depression,lipids Third Mate Required: No Accompanied by: Self / Same As Patient Allergies Seasonal Allergies Allergy (Mild, Verified 08/24/24 07:58) Unknown Medication List - Last Reconciled 08/24/24 by Mariana Lagos MD acetaminophen ER 1,300 mg (2 x 650 mg) PO Q8H PRN 30 days atorvastatin 10 mg PO BEDTIME 90 days buspirone 10 mg PO BID cane As directed cetirizine (Zyrtec) 10 mg PO DAILY PRN cyclobenzaprine 5 mg PO Q12H PRN escitalopram oxalate 10 mg PO DAILY fluoxetine 40 mg PO DAILY fluticasone propionate 50 mcg/actuation (Flonase Allergy Relief) 1 spray intranasal DAILY gabapentin 300 mg PO BEDTIME 30 days lidocaine 5% 1 patch topical DAILY 30 days lorazepam 1 mg PO TID miscellaneous medical supply 1 ea miscellaneous DAILY omeprazole 20 mg PO DAILY quetiapine 25 mg PO BEDTIME [Shower Chair As directed] Tobacco use date assessed: 05/14/24 Dental Screening Dental Screen Date: 08/24/24 Did you have a dental visit in the last 12 months?: No Did you have a dental problem in the last 6 months where you did not have access to dental care?: No Was dental information given to patient?: Patient has dentist HPI HPI Comments History of Present Illness Details The patient is a 59-year-old male presenting with a follow-up for chronic conditions, including anxiety, depression, lumbar degenerative disc disease, and hyperlipidemia, as well as for medication management. The patient reports experiencing anxiety, which was exacerbated by a recent episode indicated during a psychiatry appointment. He uses buspirone 10 mg for anxiety control and is prescribed lorazepam 0.5 mg for acute episodes. The patient describes episodes of anxiety as causing muscle tension in the neck. For depression, the patient is on a regimen of citalopram 10 mg in conjunction with fluoxetine 40 mg daily. Insomnia associated with depression is managed with Seroquel at night. For lumbar degenerative disc disease, he uses gabapentin and lidocaine patches for pain management. He reports that pain severity varies with weather conditions and primarily affects his lower back; occasionally, his neck pain supersedes the lower back discomfort. Cyclobenzaprine is taken as necessary for muscle spasms in his neck. The patient also manages Gastroesophageal Reflux Disease with omeprazole and has a history of hyperlipidemia, currently managed with atorvastatin 10 mg taken at night. He is instructed to follow up with a cholesterol test in November during his annual physical examination. [facility] Medical History Bilateral inguinal hernia (08/15/23) Pure hypercholesterolemia Depression GERD (gastroesophageal reflux disease) Lumbar degenerative disc disease Anxiety Encounter to establish care Surgical History H/O hernia repair Hx of tonsillectomy History of esophagogastroduodenoscopy (EGD) History of colonoscopy History of ankle surgery Family History Paternal Grandfather Cancer Father Cancer Mother Heart attack Essential hypertension Diabetes mellitus Social History Housing: Apartment Alcohol intake: former Patient Tobacco Use Status: Former Tobacco user Tobacco use type: Cigarette e-Cigarette/Vaping Use: Never Used Second Hand Smoke Exposure: No service: No Current occupational status: unemployed Cognitive needs: Yes Hearing needs: Yes Vision needs: No Questionnaire Thrive Questionnaire Date Thrive assessed: 05/14/24 CHERELLE-7 AMB Questionnaire CHERELLE-7 Date CHERELLE - 7 assessed: 05/14/24 Source: Developed by Drs. Natanael Espinal, Silvia Boswell, Isacc López and colleagues, with an educational og from [employer]. Review of Systems Const All systems reviewed & are unremarkable except as noted in HPI and below Card Denies chest pain at rest, Denies chest pain with activity, Denies edema, Denies irregular heart rhythm, Denies claudication, Denies dyspnea, Denies dyspnea on exertion, Denies orthopnea, Denies paroxysmal nocturnal dyspnea and Denies slow heart rate Resp Denies cough, Denies dyspnea and Denies dyspnea on exertion GI Denies abdominal pain, Denies change in bowel habits, Denies excessive flatus, Denies nausea and Denies vomiting Neuro Denies lack of coordination Physical exam (Primary Care) Vital Signs: Last Vital Signs BP 120/80 08/24/24 07:48 BMI result Body Mass Index 26.1 Tobacco/Smoking Status: Tobacco use Status Tobacco use date assessed 05/14/24 08/24/24 07:57 Patient Tobacco Use Status Former Tobacco user 08/24/24 07:57 Tobacco use type Cigarette 08/24/24 07:57 e-Cigarette/Vaping Use Never Used 08/24/24 07:57 Thrive Assessment: Date of Thrive Assessment Date Thrive assessed 05/14/24 08/24/24 07:57 Const Limitations: ambulation with cane Resp Effort & Inspection: normal respiratory effort Auscultation: clear to auscultation bilaterally Cardio Jugular venous distension: no JVD Rate: regular rate Rhythm: regular rhythm Heart sounds: S1 normal heart sound present and S2 normal heart sound present Extrem General: Yes full ROM Psych Appearance: grossly normal Coding Level of Care Code Est Pt Level 4 (86867) Complex EM visit Add On G2211 Diagnoses Mild major depression F32.0 CHERELLE (generalized anxiety disorder) F41.1 GERD (gastroesophageal reflux disease) K21.9 Hyperlipidemia E78.5 Lumbar spondylosis M47.816 Time Spent (min) 21 Assessment & Plan Assessment & Plan (1) Mild major depression: Code(s): F32.0 - Major depressive disorder, single episode, mild Category: Medical (2) CHERELLE (generalized anxiety disorder): Code(s): F41.1 - Generalized anxiety disorder Category: Medical (3) GERD (gastroesophageal reflux disease): Code(s): K21.9 - Gastro-esophageal reflux disease without esophagitis Category: Medical (4) Hyperlipidemia: Code(s): E78.5 - Hyperlipidemia, unspecified Category: Medical (5) Lumbar spondylosis: Code(s): M47.816 - Spondylosis without myelopathy or radiculopathy, lumbar region Category: Medical Plan The patient will continue his current regimen for depression with escitalopram and fluoxetine, and Seroquel for insomnia. Anxiety management includes buspirone with lorazepam for acute episodes. Back pain is addressed with gabapentin, lidocaine patches, and cyclobenzaprine for muscle spasms. Hyperlipidemia management involves atorvastatin, with follow-up testing planned for the annual physical. Attention was given to environmental controls for seasonal allergies. Patient was informed and verbally consented to the use of an ambient scribe for clinic note documentation during this visit. We discussed the critical importance of medication adherence for managing depression and anxiety. I reviewed the patient?s regimen of buspirone, escitalopram, fluoxetine, and lorazepam, explaining their benefits and potential side effects, include the risk of dependency with lorazepam. For inflammation and pain due to lumbar degenerative disc disease, I stressed proper use of gabapentin and cyclobenzaprine and the need for careful observation for sedation effects. Orders: Orders Comprehensive [place]. Panel Fast Today M54.16 - Radiculopathy, lumbar region Lipid Panel Today E78.5 - Hyperlipidemia, unspecified Medications: Refilled cyclobenzaprine 5 mg PO Q12H PRN 30 tabs 1RF for muscle spasm M54.31 - Sciatica, right side Patient Instructions: - Continue taking medications as prescribed for depression, anxiety, GERD, and hyperlipidemia. - Use lorazepam only as needed for acute anxiety episodes. - Apply lidocaine patches and take gabapentin for back pain as directed. - Use cyclobenzaprine for neck muscle spasms as instructed. - Ensure follow-up for cholesterol test in November. - Maintain environmental controls to manage seasonal allergies. - Seek medical care if symptoms worsen or side effects from medications occur.
[2024-08-24 07:48] VITALS: BP 120/80; BMI 26.1
== END 2024-08-24 09:27 | disposition home or self-care (01) ==
LOC: HO.HMCH 07:21
PROVIDERS: PCP Internal Medicine; Visit Provider Internal Medicine
DX: F32.0 Major depressive disorder, single episode, mild (principal); F41.1 Generalized anxiety disorder; K21.9 Gastro-esophageal reflux disease without esophagitis; E78.5 Hyperlipidemia, unspecified; M47.816 Spondylosis without myelopathy or radiculopathy, lumbar region

== ENCOUNTER → 2024-08-24 07:21 | Outpatient (BNVA) | payer OTHER, SELFPAY | PROVIDERS: PCP Internal Medicine; Visit Provider Internal Medicine | DX: F32.0 Major depressive disorder, single episode, mild (principal); F41.1 Generalized anxiety disorder; K21.9 Gastro-esophageal reflux disease without esophagitis; E78.5 Hyperlipidemia, unspecified; M47.816 Spondylosis without myelopathy or radiculopathy, lumbar region; M54.31 Sciatica, right side; Z79.899 Other long term (current) drug therapy | CPT/HCPCS: 99212 ==

== ENCOUNTER 2024-10-19 07:37 | Outpatient (REF) | payer OTHER, SELFPAY ==
--- OUTSIDE RECORDS SUMMARY | 2024-10-19 07:40 | XMS_ITS | Data Portability ---
Author Organization [place] - [facility], Allergy Address [address] [address] Care Team Providers Care Waiter/Waitress Name Role Phone RAUL BUSTOS Primary Care Provider [phone] Assessment Encounter Date Assessment Date Assessment LastModified by Organization Details LastModified Time 12/30/2023 12/30/2023 Physical exam reveals the effusion has cleared on the left and improved but not resolved on the right. Sensorineural hearing loss is stable and symmetric without a conductive component. Reviewed with patient to continue use of the fluticasone, utilizing crossed hand technique. Discussed indications to return to the office including decreased hearing or development of pain. In the absence of this, recommend annual audiometric testing. Patient is agreeable to the plan. [email or web address] Not available 12/30/2023 11:08:15 Plan of Treatment Reminders Order Date Submit Date Provider Last Modified By Organization Details Last Modified Time Details Appointments Hearing Test 2024 09:30A M Hearing Test Not available Not available Not available Establish ed 15 2024 10:00A M ARON MERIDA PA-C Not available Not available Not available Lab None recorded. Referral None recorded. Procedures None recorded. Surgeries None recorded. Imaging None recorded. Medication Orders None recorded. Patient TargetsNo targets recorded. Patient InstructionsNo instructions recorded. Reason for Referral None Reported. Results Created Date Observation Date Name Description Value Unit Range Abnormal Flag Note LastModifiedBy Organization Detail LastModifiedTime 12/24/19 24 12/26/2022 imagi ng/di agnos tic resul t No observ ation record ed. [email or web address] Not Available 13:06:33 12/31/19 24 audio gram No observ ation record ed. [email or web address] Not Available 2023 08:56:11 Result Notes None recorded. Problems Name Problem SNOMED Code Status Onset Date Resolution Date Notes Provider Name and Address Organization Details Recorded Time Benign paroxysma l positiona l vertigo 022978295 Active 2022 Benign paroxysma l vertigo, bilateral ; Note: Date Diagnosed : 12/26/2022 3:17 PM (H81.13) Not Available [facility] 4 03:28:10 Sensorine ural hearing loss of bilateral ears 251044809 Active 2022 Sensorine ural hearing loss, bilateral ; Note: Date Diagnosed : 12/26/2022 3:17 PM (H90.3) Not Available [facility] 4 03:28:09 Bilateral tinnitus 85795466298 02 Active 2022 Tinnitus, bilateral ; Note: Date Diagnosed : 12/26/2022 3:23 PM (H93.13) Not Available [facility] 4 03:28:10 Chronic serous otitis media of right ear 352132206 Active 2023 RICHARD JOYCE PA-C [address] [place] [address], [phone] , [facility] 11:07:00 Problem Notes None recorded. Procedures Surgical History Date Name Laterality Status Provider Name and Address Organization Details Recorded Time 12/30/2023 Air & Speech Audio with Tymps - 16386, 24809 & 42674 completed ANTONIO KING [address] [place] [address], [place], [phone], [facility] 12/30/2023 10:24:55 Imaging Results None recorded. Procedure Notes None recorded. Medical Equipment None Reported. Allergies No known drug allergies Medications Name Sig Start Date Stop Date Status Note LastModified by Organization Details LastModified Time quetiapine 25 mg tablet active Not Available Not Available Not Available buspirone 5 mg tablet active Not Available Not Available Not Available trazodone 50 mg tablet active Not Available Not Available Not Available cetirizine 10 mg tablet TOME GLENN TABLETA POR V A ORAL TODOS LOS D NEEDED FOR ALLERGY SYMPTOMS active Not Available Not Available No t Available atorvastat in 10 mg tablet TOME 1 TABLETA POR V A ORAL TODOS LOS D AL ACOSTARSE active Not Available Not Available No t Available azithromyc in 250 mg tablet TOME 2 TABLETAS V A ORAL HOY, [place] TOME 1 TABLETA DIARIAMEN TE NORMA 4 D SEG N LAS INDICACIO LIBRA active Not Available Not Available No t Available hydrocodon e 5 mg-acetami nophen 325 mg tablet TAKE 1 TAB ORALLY EVERY 4 TO 6 HOURS NEEDED FOR PAIN PARTIAL FILL UPON PATIENT REQUEST. active Not Available Not Available No t Available sertraline 100 mg tablet active Not Available Not Available Not Available acetaminop hen ER 650 mg tablet,ext ended release TOME DOS TABLETAS ORALLY EVERY 8 HOURS NEEDED FOR PAIN FOR 30 DAYS active Not Available Not Available No t Available lorazepam 0.5 mg tablet active Not Available Not Available Not Available lidocaine 5 % topical patch APPLY 1 PATCH TOPICALLY DAILY FOR PAIN FOR 30 DAYS active Not Available Not Available No t Available gabapentin 300 mg capsule TOME 1 C PSULA POR V A ORAL AL ACOSTARSE CUANDO SEA NECESARIO PARA EL DOLOR FOR 30 DAYS active Not Available Not Available No t Available omeprazole 20 mg capsule,de layed release TOME 1 C PSULA POR V A ORAL TODOS LOS D active Not Available Not Available No t Available lorazepam (bulk) 100 % powder active Medicatio n ID: [id number] Br and Name: lorazepam (bulk) Se nd Method: E-Prescri bed Subs Allowed: subs OK Medica tionGener icName: lorazepam (bulk) Not Available Not Available Not Available gabapentin 100 mg capsule active Medicatio n ID: [id number] Br and Name: gabapenti n Send Method: E-Prescri bed Subs Allowed: subs OK Medica tionGener icName: gabapenti n Not Available Not Available Not Available fluticason e propionate 50 mcg/actuat ion nasal spray,susp ension INSTILL 1 SPRAY INTO EACH NOSTRIL DAILY active Not Available Not Available No t Available sertraline 50 mg tablet TOME GLENN TABLETA TODOS LOS D active Not Available Not Available No t Available cyclobenza moraima 5 mg tablet TAKE 1 TABLET BY MOUTH EVERY 12 HOURS NEEDED FOR MUSCLE SPASM active Not Available Not Available No t Available Vitals Date Recorded Body height Body mass index (BMI) Body weight Provider Name and Address Organization Details Last Updated DateTime 12/30/2023 160.02 cm 27.1 kg/m2 51501.63 g Ila Cash [place] - [facility] 12/30/2023 10:43:29 Social History None recorded. Functional Status None recorded. Mental Status None recorded. Family History Nothing Reported. Medical History No medical history recorded. Past Encounters Encounter ID Performer Location Encounter Start Date Encounter Closed Date Diagnosis/Indication Diagnosis SNOMED-CT Code Diagnosis ICD10 Code Diagnosis Note [id number] RICHARD JOYCE PA-C [facility] [address] [address] 12/30/2023 09:56:13 12/30/2023 11:03:51 Sensorineural hearing loss of bilateral ears 343412899 H90.3 Audiologic al evaluation results:Ri ght ear:Normal sloping to moderate sensorineu ral hearing loss with excellent word recognitio n.Left ear:Normal sloping to moderate sensorineu ral hearing loss with excellent word recognitio n.Tympanom etry:Right Ear:Type BLeft Ear:Type As Chronic se yair otitis media of right ear [id number] H65.21 Health Concerns Section Related Observation LastModified by Organization Detai ls LastModified Time None Recorded Concern Status LastModified by Organization Details LastModified Time None Recorded Advance Directives Directive None Recorded Payers Insurance Date Sequence Insurance Name Policy Number Policy Barry Covered Member ID Barry Member ID Guarantor Name 12/30/2023 1 [facility] - HEALTH NET PLAN (MEDICAID HMO) ROME Whitley [id number] Ney Whitley Notes Date Note Type Note Provider Name and Address Organization Details Recorded Time 12/30/2023 text/html 58 year old male presents for evaluation of ears and hearing. He reports since last evaluation he has been hearing better with his hearing aids. They fit comfortably. There is very little tinnitus, easily tolerated with masking. Denies otalgia and otorrhea. The vertigo has not recurred. RICHARD JOYCE PA-C [address] [place] [address], [phone], [facility] - [facility] 12/30/2023 11:08:50
[2024-10-19 08:11] LABS: Alanine Aminotransferase 21 U/L (0-40); Albumin Level 4.7 g/dL (3.5-5.0); Alkaline Phosphatase 109 U/L (39-117); Anion Gap 13 (12-20); Aspartate Amino Transferase 20 U/L (5-37); Bilirubin Total 1.4 mg/dL (0.0-1.0); Blood Urea Nitrogen 15 mg/dL (9-16); Calcium 10.3 mg/dL (8.4-10.2); Carbon Dioxide 27 mmol/L (22-29); Chloride 103 mmol/L (96-108); Cholesterol 224 mg/dL (<200); Estimated Glomerular Filt Rate > 60; Glucose Fasting 97 mg/dL (60-99); HDL Cholesterol 71 mg/dL (>40); LDL Cholesterol Calculated 132 mg/dL (<100); Potassium 4.8 mmol/L (3.3-5.1); Sodium 138 mmol/L (135-145); Total Protein 7.3 g/dL (6.5-8.0); Triglycerides 109 mg/dL (<150)
== END 2024-10-19 07:38 | disposition home or self-care (01) ==
LOC: HO.LAB 07:37
PROVIDERS: PCP Internal Medicine; Visit Provider Internal Medicine
DX: E78.5 Hyperlipidemia, unspecified (principal); Z00.00 Encounter for general adult medical examination without abnormal findings
CPT/HCPCS: 36415; 80053; 80061

== ENCOUNTER 2024-11-26 10:48 | Outpatient (AMB) | payer OTHER, SELFPAY ==
--- NOTE | 2024-11-26 10:51 | MHC.PC.OV ---
Vital Signs 11/26/24 10:52 Height 5 ft 4 in Weight 153 lb BMI 26.3 BP 110/72 Blood Pressure Location Lt brachial Position Sitting Intake Visit Reasons: annual exam Intake Note: Patient here for a physical exam Cloth Measurer Required: No Accompanied by: Self / Same As Patient Allergies Seasonal Allergies Allergy (Mild, Verified 11/26/24 11:18) Unknown Medication List - Last Reconciled 11/26/24 by Mariana Lagos MD acetaminophen ER 1,300 mg (2 x 650 mg) PO Q8H PRN 30 days atorvastatin 20 mg PO BEDTIME 90 days buspirone 10 mg PO BID cane As directed cetirizine (Zyrtec) 10 mg PO DAILY PRN cyclobenzaprine 5 mg PO Q12H PRN escitalopram oxalate 10 mg PO DAILY fluoxetine 40 mg PO DAILY fluticasone propionate 50 mcg/actuation (Flonase Allergy Relief) 1 spray intranasal DAILY gabapentin 300 mg PO BEDTIME 30 days lidocaine 5% 1 patch topical DAILY 30 days lorazepam 1 mg PO TID miscellaneous medical supply 1 ea miscellaneous DAILY omeprazole 20 mg PO DAILY quetiapine 25 mg PO BEDTIME [Shower Chair As directed] Tobacco use date assessed: 05/14/24 Dental Screening Dental Screen Date: 08/24/24 HPI HPI Comments History of Present Illness Details The patient is a 59-year-old male presenting for an annual physical examination. The patient has a history of anxiety, for which he is prescribed lorazepam and escitalopram. He also takes fluoxetine and sees a psychiatrist regularly. For allergic rhinitis, the patient uses Zyrtec and a nasal spray. The patient has lumbar degenerative disease and manages pain with Flexeril and gabapentin at night. He has a history of gastroesophageal reflux disease and takes omeprazole for management. The patient experiences insomnia and is prescribed quetiapine at night. Surgical history includes inguinal hernia repair, tonsillectomy at age [age], and ankle surgery following an accident. Family history is significant for bladder cancer in his father and diabetes, hypertension, and myocardial infarction in his mother. The patient suffered a stroke 35 years ago, which required therapy for right-sided weakness. He has a history of smoking and alcohol use, both of which he has ceased. Recent laboratory tests showed excellent renal function, normal blood glucose levels, and slightly elevated cholesterol with a high HDL level. [facility] Medical History (Updated 11/26/24 @ 11:30 by Mariana Lagos MD) Bilateral inguinal hernia (08/15/23) Pure hypercholesterolemia Depression GERD (gastroesophageal reflux disease) Lumbar degenerative disc disease Anxiety Encounter to establish care Surgical History H/O hernia repair Hx of tonsillectomy History of esophagogastroduodenoscopy (EGD) History of colonoscopy History of ankle surgery Family History (Updated 11/26/24 @ 11:23 by Mariana Lagos MD) Paternal Grandfather Cancer Father Cancer Mother Heart attack Essential hypertension Diabetes mellitus Son Stroke Social History Housing: Apartment Alcohol intake: former Patient Tobacco Use Status: Former Tobacco user Tobacco use type: Cigarette e-Cigarette/Vaping Use: Never Used Second Hand Smoke Exposure: No service: No Current occupational status: unemployed Cognitive needs: Yes Hearing needs: Yes Vision needs: No Questionnaire PHQ-9 Over the last 2 weeks, how often have you been bothered by any of the following problems? 1. Little interest or pleasure in doing things: not at all 2. Feeling down, depressed, or hopeless: not at all 3. Trouble falling or staying asleep, or sleeping too much: not at all 4. Feeling tired or having little energy: not at all 5. Poor appetite or overeating: not at all 6. Feeling bad about yourself - or that you are a failure or have let yourself or your family down: not at all 7. Trouble concentrating on things, such as reading the newspaper or watching television: not at all 8. Moving or speaking so slowly that other people could have noticed. Or the opposite - being so fidgety or restless that you have been moving around a lot more than usual: not at all 9. Thoughts that you would be better off or of hurting yourself in some way: not at all Total score: 0 Depression Screening Interpretation: Negative Depression Screening Done: Yes 24462 - PHQ-9 Billing: Yes Source: Developed by Drs. Natanael Espinal, Silvia Boswell, Isacc López and colleagues, with an educational og from [employer]. Thrive Questionnaire Date Thrive assessed: 11/26/24 I am a: Patient What is your living situation today?: I have a steady place to live Within the past 12 months, did the food you bought not last and you didn't have the money to get more?: Often true Within the past 12 months, did you worry whether your food would run out before you got money to buy more?: Often true Do you have trouble paying for medicines?: No Do you have trouble getting transportation to medical appointments?: No Do you have trouble paying your heating and electricity bill?: No Do you have trouble taking care of your child, family member or friend?: No Do you have trouble with day-to-day activities such as bathing, preparing meals, shopping, managing finances, etc.?: Yes Are you currently unemployed and looking for a job?: No Are you interested in more education?: Yes Please select the resources that you would like help with: Care for elder or disabled Currently or been in a relationship where the following occur: No concerns reported THRIVE Score: 2 AUDIT C Alcohol Use Questionnaire (AUDIT-C) 1. How often do you have a drink containing alcohol?: Never Total Score: 0 CHERELLE-7 AMB Questionnaire CHERELLE-7 Date CHERELLE - 7 assessed: 11/26/24 Feeling nervous, anxious, or on edge: 0 = Not at all Not being able to stop or control worryin = Not at all Worrying too much about different things: 0 = Not at all Trouble relaxin = Not at all Being so restless that it is hard to sit still: 0 = Not at all Becoming easily annoyed or irritable: 0 = Not at all Feeling afraid as if something awful might happen: 0 = Not at all Total CHERELLE-7 score (0-4 normal; 5-9 mild; 10-14 moderate; 15-21 severe): 0 Source: Developed by Drs. Natanael Espinal, Silvia Boswell, Isacc López and colleagues, with an educational og from [employer]. CHERELLE-7 Assessment Billing CHERELLE-7 Assessment Tool: CHERELLE-7 Assessment 91924 Review of Systems Const All systems reviewed & are unremarkable except as noted in HPI and below Card Denies chest pain at rest, Denies chest pain with activity, Denies edema, Denies irregular heart rhythm, Denies claudication, Denies dyspnea, Denies dyspnea on exertion, Denies orthopnea, Denies paroxysmal nocturnal dyspnea and Denies slow heart rate Resp Denies cough, Denies dyspnea and Denies dyspnea on exertion GI Denies abdominal pain, Denies change in bowel habits, Denies excessive flatus, Denies nausea and Denies vomiting Denies urinary hesitancy, Denies urinary incontinence and Denies urinary urgency Musc Denies abnormal gait, Denies atrophy, Denies deformity and Denies limited range of motion Skin/Breast Denies bleeding lesions, Denies changing lesions and Denies rash Neuro Denies abnormal gait and Denies lack of coordination Physical exam (Primary Care) Vital Signs: Last Vital Signs BP 110/72 11/26/24 10:52 BMI result Body Mass Index 26.3 Tobacco/Smoking Status: Tobacco use Status Tobacco use date assessed 05/14/24 11/26/24 10:56 Patient Tobacco Use Status Former Tobacco user 11/26/24 10:56 Tobacco use type Cigarette 11/26/24 10:56 e-Cigarette/Vaping Use Never Used 11/26/24 10:56 PHQ-9: PHQ-9 Score PHQ-9: Total score 0 11/26/24 10:56 Depression Screening Interpretation: Negative Thrive Assessment: Date of Thrive Assessment Date Thrive assessed 11/26/24 11/26/24 10:56 Currently or been in a relationship where the following occur: No concerns reported Const Limitations: ambulation with cane HENMT Head: Yes normal to inspection, Yes normocephalic and Yes atraumatic Ears: external ears normal Eyes General: appearance normal, both eyes and all related structures Eyelids: Yes eyelids normal Conjunctivae: conjunctivae normal Neck Neck: Yes normal visual inspection and Yes supple Resp Effort & Inspection: normal respiratory effort Auscultation: clear to auscultation bilaterally Cardio Jugular venous distension: no JVD Rate: regular rate Rhythm: regular rhythm Heart sounds: S1 normal heart sound present and S2 normal heart sound present GI Inspection: Yes normal to inspection Palpation (GI): Soft to palpation and nontender Auscultation: normal bowel sounds Skin General skin exam: no rashes or lesions noted Neuro General: no focal motor deficits Extrem General: Yes full ROM Psych Appearance: grossly normal Coding Level of Care Code Est Pt Level 3 (12074) Est Pt Prev Care 40-64y(03363) Diagnoses Adult general medical exam Z00.00 Mild major depression F32.0 Chest pain R07.9 Additional Codes PHQ-9 - 07493 - PHQ-9 Billing: Yes ([id number]) CHERELLE-7 Assessment Billing - CHERELLE-7 Assessment Tool: CHERELLE-7 Assessment 73746 ([id number]) Time Spent (min) 33 Assessment & Plan Assessment & Plan (1) Adult general medical exam: Code(s): Z00.00 - Encounter for general adult medical examination without abnormal findings Category: Medical (2) Mild major depression: Code(s): F32.0 - Major depressive disorder, single episode, mild Category: Medical (3) Chest pain: Code(s): R07.9 - Chest pain, unspecified Category: Medical Plan The patient will undergo an electrocardiogram to evaluate occasional chest discomfort, as it has been some time since the last assessment. Continued management of anxiety and depression with current medications and psychiatric follow-up is advised. For lumbar degenerative disease, the patient should continue using Flexeril and gabapentin as needed for pain management. Gastroesophageal reflux disease management with omeprazole should be maintained. The patient is advised to maintain regular follow-ups for health maintenance, including vaccinations and screenings. Patient was informed and verbally consented to the use of an ambient scribe for clinic note documentation during this visit. Orders: Orders ECG 12 lead EKG Today R07.9 - Chest pain, unspecified PSA,Total (Free>4and<10) Today R35.1 - Nocturia
[2024-11-26 10:52] VITALS: BP 110/72; BMI 26.3
--- OUTSIDE RECORDS SUMMARY | 2024-11-26 11:39 | XMS_ITS | Data Portability ---
Author Organization [place] - [facility], Allergy Address [address] [address] Care Team Providers Care Chamber Magistrate Name Role Phone RAUL BUSTOS Primary Care Provider Assessment Encounter Date Assessment Date Assessment LastModified [...] Time Benign paroxysma l positiona l vertigo [id number] Active 2022 Benign paroxysma l vertigo, bilateral ; Note: Date Diagnosed : 12/26/2022 3:17 PM (H81.13) Not Available [facility] 4 03:28:10 Sensorine ural hearing loss of bilateral ears 921748228 Active 2022 Sensorine ural hearing loss, bilateral ; Note: Date Diagnosed : 12/26/2022 3:17 PM (H90.3) Not Available [facility] 03:28:09 Bilateral tinnitus 24953247670 02 Active 2022 Tinnitus, bilateral ; Note: Date Diagnosed : 12/26/2022 3:23 PM (H93.13) Not Available [facility] 03:28:10 Chronic serous otitis media of right ear 396389031 Active 2023 RICHARD JOYCE PA-C [address] [place] [address], [phone] , [facility] 11:07:00 Problem Notes None recorded. Procedures Surgical History Date Name Laterality Status Provider Name and Address Organization Details Recorded Time 12/30/2023 Air & Speech Audio with Tymps - 67507, 31957 & 40718 completed ANTONIO KING [address] [place] [address], [place], [phone], [facility] 12/30/2023 10:24:55 Imaging Results None recorded. Procedure [...] 100 % powder active Medicatio n ID: [id number] Br and Name: lorazepam (bulk) Se nd Method: E-Prescri bed Subs Allowed: subs OK Medica tionGener icName: lorazepam (bulk) Not Available Not Available Not Available gabapentin 100 mg capsule active Medicatio n ID: [id number] Br and Name: gabapenti n Send Method: [...] Updated DateTime 12/30/2023 160.02 cm 27.1 kg/m2 29146.63 g Ila Cash [place] - [facility] 12/30/2023 10:43:29 Social History None recorded. Functional Status None recorded. Mental Status None recorded. Family History Nothing Reported. Medical History No medical history recorded. Past Encounters Encounter ID Performer Location Encounter Start Date Encounter Closed Date Diagnosis/Indication Diagnosis SNOMED-CT Code Diagnosis ICD10 Code Diagnosis Note [id number] RICHARD JOYCE PA-C [facility] [address] [phone] 12/30/2023 09:56:13 12/30/2023 11:03:51 Sensorineural hearing loss of bilateral ears [id number] H90.3 Audiologic al evaluation results:Ri ght ear:Normal sloping to moderate sensorineu ral hearing loss with excellent word recognitio n.Left ear:Normal sloping to moderate sensorineu ral hearing loss with excellent word recognitio n.Tympanom etry:Right Ear:Type BLeft Ear:Type As Chronic se yair otitis media of right ear [id number] H65.21 Health Concerns Section Related Observation LastModified by Organization Detai ls LastModified Time None Recorded Concern Status LastModified by Organization Details LastModified Time None Recorded Advance Directives Directive None Recorded Payers Insurance Date Sequence Insurance Name Policy Number Policy Barry Covered Member ID Barry Member ID Guarantor Name 12/30/2023 1 [facility] [place] [facility] [place] [place] PLAN (MEDICAID HMO) ROME Whitley [id number] Ney Whitley Notes Date Note Type Note [...] vertigo has not recurred. RICHARD JOYCE PA-C [address] [place] [address], [phone], [facility] - [facility] 12/30/2023 11:08:50
== END 2024-11-26 11:29 | disposition home or self-care (01) ==
LOC: HO.HMCH 10:48
PROVIDERS: PCP Internal Medicine; Visit Provider Internal Medicine
DX: Z00.00 Encounter for general adult medical examination without abnormal findings (principal); R07.9 Chest pain, unspecified; F32.0 Major depressive disorder, single episode, mild

== ENCOUNTER → 2024-11-26 10:48 | Outpatient (BNVA) | payer OTHER, SELFPAY | PROVIDERS: PCP Internal Medicine; Visit Provider Internal Medicine | DX: Z00.00 Encounter for general adult medical examination without abnormal findings (principal); F32.0 Major depressive disorder, single episode, mild; F41.9 Anxiety disorder, unspecified; R07.9 Chest pain, unspecified; M51.369 Other intervertebral disc degeneration, lumbar region without mention of lumbar back pain or lower extremity pain; K21.9 Gastro-esophageal reflux disease without esophagitis; Z13.31 Encounter for screening for depression; Z13.39 Encounter for screening examination for other mental health and behavioral disorders | CPT/HCPCS: 96127; 99212; 99396 ==

== ENCOUNTER 2024-11-27 10:48 | Outpatient (REF) | payer OTHER, SELFPAY ==
[2024-11-27 12:01] LABS: PSA,Total (Free>4and<10) 0.30 ng/mL (0.00-4.00)
== END 2024-11-27 10:49 | disposition home or self-care (01) ==
LOC: HO.LAB 10:48
PROVIDERS: PCP Internal Medicine; Visit Provider Internal Medicine
DX: R35.1 Nocturia (principal)
CPT/HCPCS: 36415; 84153